=== PATIENT | male | born 1965 | race African-American/Black ===

== ENCOUNTER → 2017-10-17 | Outpatient (CLI) | payer BC ==
[~2017-10-17] MED LIST: AMOX500C3 PO; ASCO500C43; CHRO1CAP7; CIPR1TAB11 PO; GARL1CAP; GLIP-197 PO; GLIP10TA10 PO; METF-384 PO; MULTTAB58 PO; SULF800T23 PO; TRAM-10 PO; VITA400C15 PO; VITATAB19 PO
[2017-10-17 19:50] LABS: CREATININE 1.49 mg/dl (0.60-1.40)
== END | disposition home or self-care (01) ==
LOC: C.LAB 17:34
PROVIDERS: ATTEND Emergency Medicine
DX: Z01.812 Encounter for preprocedural laboratory examination (principal)

== ENCOUNTER → 2017-10-18 | Outpatient (CLI) | payer BC ==
[~2017-10-18] MED LIST changes: +GADAVIST IV PRN; +LCTX PO; +LSN5 PO; +LVQ750 PO; +MTR500 PO
--- NOTE | 2017-10-18 09:35 | DIAGNOSTIC IMAGING REPORT ---
L LOWER EXT NONJOINT COMBO CLINICAL HISTORY: L FOOT ULCER pain. Infection. TECHNIQUE: Multiaxial MRI acquisition COMPARISON STUDY: None FINDINGS: Evidence for extensive soft tissue cellulitis seen circumferentially about the foot. At the plantar lateral aspect of the foot is an area of increased edematous change with several small air bubbles within the soft tissues adjacent to a fistulous tract extending to the skin surface. This potentially indicates a developing phlegmon and/or air producing bacteria. The osseous structures show no evidence for osteomyelitis. Signal characteristics the osseous structures are uniform throughout. There are findings of mild degenerative changes of the articular services. All major ligamentous and tendinous structures are intact. Bacteria IMPRESSION: 1. Generalized soft tissue cellulitis seen circumferentially about the foot. 2. This predominates at the soft tissues immediately adjacent to the base of the fifth metatarsal where there is a possibility of an early developing air-containing phlegmon versus air producing inflammatory process. 3. No evidence for drainable abscess or collection. 4. No evidence for osteomyelitis. The above report was generated using voice recognition software. It may contain grammatical, syntax or spelling errors. Electronically signed by: Giuseppe Leon M.D. 10/18/2017 9:33 AM Dictated Date/Time: 10/18/2017 9:16 AM
== END | disposition home or self-care (01) ==
LOC: C.MRI 07:49
PROVIDERS: ATTEND Physician Assistant
DX: E11.621 Type 2 diabetes mellitus with foot ulcer (principal); L97.529 Non-pressure chronic ulcer of other part of left foot with unspecified severity; L03.116 Cellulitis of left lower limb

== ENCOUNTER 2017-10-20 10:31 | Inpatient (IN) | payer BC ==
[~2017-10-20] VITALS: Ht 190.5 cm; Wt 102.0 kg
[~2017-10-20 10:31] MED LIST changes: -GADAVIST IV PRN; -GLIP10TA10 PO; -LCTX PO; -LSN5 PO; -LVQ750 PO; -MTR500 PO; -MULTTAB58 PO
[2017-10-20 11:30] VITALS: BP 145/87; PULSE 106; TEMP 37.3; O2SAT 97; BMI 26.3
[2017-10-20] MEDS ORDERED: POLYETHYLENE (MIRALAX) 17 GM PACK PO PRN (11:45)
[2017-10-20] MEDS ORDERED: ACETAMINOPHEN 325 MG TAB PO PRN (11:45)
[2017-10-20] MEDS ORDERED: ONDANSETRON INJ 2 MG/ML 2 ML VIAL IV PRN (11:45)
[2017-10-20] MEDS ORDERED: MULTTAB58 PO (12:26)
[2017-10-20] MEDS ORDERED: DEXTROSE 50% 50 ML SYR IV PRN (12:30)
[2017-10-20] MEDS ORDERED: GLUCAGON FOR INJ 1 MG VIAL SQ PRN (12:30)
[2017-10-20] MEDS ORDERED: GLUCOSE 10 TABS/TUBE PO PRN (12:30)
[2017-10-20] MEDS ORDERED: GLUCOSE 40% GEL 15 GM TUBE PO PRN (12:30)
[2017-10-20] MEDS ORDERED: PATIENT'S HEIGHT AND/OR WEIGHT NEEDED SCH (12:30)
[2017-10-20 12:36] LABS: BASO % 0.1 %; BASO ABS # 0.01 K/uL (0-0.2); EOS ABS # 0.08 K/uL (0-0.5); HEMATOCRIT 32.4 % (42-52); HEMOGLOBIN 11.1 g/dL (14.0-18.0); IG# 0.01 K/uL (0.00-0.02); LYMPH % 14.3 %; MEAN CELL VOLUME 82.4 fL (80-100); MEAN CORPUSCULAR HEMOGLOBIN 28.2 pg (25-34); MEAN CORPUSCULAR HGB CONC 34.3 g/dl (32-36); MEAN PLATELET VOLUME 10.6 fL (7.4-10.4); MONO % 3.7 %; MONO ABS # 0.31 K/uL (0.11-0.59); NEUT % 80.8 %; NEUT ABS # 6.77 K/uL (1.4-6.5); PLATELET COUNT 357 K/uL (130-400); RED CELL DISTRIBUTION WIDTH CV 12.6 % (11.5-14.5); RED CELL DISTRIBUTION WIDTH SD 38.3 fL (36.4-46.3); WHITE BLOOD COUNT 8.38 K/uL (4.8-10.8)
[2017-10-20] MEDS ORDERED: VANCOMYCIN CONSULT ACTIVE PRN (12:45)
[2017-10-20] MEDS ORDERED: CEFEPIME CONSULT ACTIVE PRN (12:45)
[2017-10-20] MEDS ORDERED: VANCOMYCIN IV 2,500 MG in SODIUM CHLORIDE 0.9% 500ML 500 ML IV SCH (13:00)
[2017-10-20] MEDS ORDERED: CEFEPIME IV 2,000 MG in SYRINGE 7.5 ML IV SCH (13:00)
[2017-10-20] MEDS: TRAMADOL HCL 50 MG TAB PO PRN (13:04)
[2017-10-20 13:05] LABS: CALCIUM 9.2 mg/dl (8.5-10.1); CREATININE 1.34 mg/dl (0.60-1.40); POTASSIUM 5.3 mmol/L (3.5-5.1)
[2017-10-20] MEDS ORDERED: PIPERACILL/TAZOBAC CONSULT ACTIVE PRN (13:30)
[2017-10-20] MEDS ORDERED: SODIUM CHLORIDE 0.9% 1000ML 1,000 ML IV SCH ×3 (13:30→21:15)
[2017-10-20] MEDS ORDERED: PIPERACILL/TAZOBAC IV 4.5 GM in DEXTROSE 5% 100ML 100 ML IV ONE (14:00)
[2017-10-20] MEDS ORDERED: INSULIN HUMAN REGULAR PER UNIT 10 UNITS in SYRINGE 9.9 ML IV ONE (14:15)
[2017-10-20 14:22] LABS: PHOSPHORUS 3.8 mg/dl (2.5-4.9)
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
[2017-10-20 14:49] VITALS: BMI 28.1
--- NOTE | 2017-10-20 15:30 | Medical Consult ---
Consultation Date of Consultation: Oct 20, 2017. Attending Physician: Tia Willis M.D. Reason for Consultation: Left foot wound History of Present Illness 52-year-old male with longstanding diabetes mellitus, who has suffered from and open wound of his left foot for approximately 1 month. He initially saw his primary care doctor who gave him a dose of IV ceftriaxone and treated him with Bactrim, and then refer the patient to the wound Care Center. Patient had culture obtained which grew Streptococcus, Bacteroides, and Pseudomonas, and patient was treated with oral ciprofloxacin and amoxicillin. However he returned to the wound Care Center and was found to have worsening wound, area was debrided and packed, and patient was referred to hospital for admission. He has had MRI scan, read by me, which shows no evidence of osteomyelitis but presence of soft tissue infection. Patient denies any fever, chills, or other systemic complaints. Currently states pain 3/10 intensity. Past Medical/Surgical History Medical Problems: (1) Bronchitis (2) Cellulitis of left foot (3) DM (diabetes mellitus) (4) HTN (hypertension) Surgical Problems: (1) History of right cataract surgery (2) Hx of fracture of femur (3) Hx of fracture of skull Family History Diabetes mellitus FH: CAD (coronary artery disease) Hypertension Social History Smoking Status: Former Smoker Smokeless Tobacco Use: Yes Alcohol Use: none Drug Use: none Marital Status: Housing Status: lives with family Occupation Status: employed Allergies Coded Allergies: No Known Allergies (Unverified , NONE, 03/03/09) Current Inpatient Medications Current Inpatient Medications Medications (Trade) Dose Ordered Sig/Adrian Route Start Time Stop Time Status Last Admin Dose Admin Acetaminophen (Tylenol Tab) 650 mg Q4H PRN PO 10/20/17 11:45 11/19/17 11:44 10/20/17 14:30 650 MG Polyethylene (Miralax Powder Packet) 17 gm DAILY PRN PO 10/20/17 11:45 11/19/17 11:44 Ondansetron HCl (Zofran Inj) 4 mg Q6H PRN IV 10/20/17 11:45 11/19/17 11:44 Insulin Glargine (Lantus Solostar Pen) 15 units Q12 SC 10/20/17 21:00 11/19/17 20:59 Insulin Aspart (novoLOG ASPART) SLIDING SCALE If C... ACHS SC 10/20/17 16:30 11/19/17 16:29 Glucose (Glucose 40% Gel) 15-30 GRAMS 15 GRAMS... UD PRN PO 10/20/17 12:30 11/19/17 12:29 Glucose (Glucose Chew Tab) 4-8 Tablets 4 Tabl... UD PRN PO 10/20/17 12:30 11/19/17 12:29 Dextrose (Dextrose 50% 50ML Syringe) 25-50ML OF 50% DW IV FOR... UD PRN IV 10/20/17 12:30 11/19/17 12:29 Glucagon (Glucagon Inj) 1 mg UD PRN SQ 10/20/17 12:30 11/19/17 12:29 Multivitamins (Multivitamin Tab) 1 tab DAILY PO 10/21/17 09:00 11/20/17 08:59 Tramadol HCl (Ultram Tab) 50 mg Q6 PRN PO 10/20/17 12:30 11/19/17 12:29 10/20/17 13:04 50 MG Sodium Chloride 1,000 ml @ 100 mls/hr Q10H IV 10/20/17 13:30 10/20/17 23:29 10/20/17 14:20 100 MLS/HR Piperacillin Sod/ Tazobactam Sod 4.5 gm/Dextrose 120 ml @ 30 mls/hr Q8H IV 10/20/17 20:00 10/30/17 13:59 Miscellaneous Information (Consult) 1 ea UD PRN N/A 10/20/17 13:30 11/19/17 13:29 Insulin Aspart (novoLOG ASPART) SLIDING SCALE If C... 0000,0400 [place] 10/21/17 00:00 11/20/17 00:00 Review of Systems All systems were reviewed and are negative except as per HPI Physical Exam Date Time Temp Pulse Resp B/P (MAP) Pulse Ox O2 Delivery O2 Flow Rate FiO2 10/20/17 11:30 37.3 106 18 145/87 (106) 97 Room Air 10/20/17 11:30 37.3 106 18 145/87 97 Room Air General Appearance: WD/WN, no apparent distress Head: normocephalic, atraumatic Eyes: normal inspection, EOMI, sclerae normal ENT: normal ENT inspection, hearing grossly normal, pharynx normal Neck: supple, no adenopathy, thyroid normal, trachea midline Respiratory/Chest: chest non-tender, lungs clear, normal breath sounds, no respiratory distress Cardiovascular: regular rate, rhythm, no gallop, no murmur Abdomen/GI: normal bowel sounds, non tender, soft, no organomegaly Back: normal inspection, no CVA tenderness Extremities/Musculoskelatal: no calf tenderness, normal capillary refill, non- tender Neurologic/Psych: alert, normal mood/affect, oriented x 3 Skin: normal color, no rash, + pertinent finding (left lateral foot wound with erythema, induration, foul odor) Laboratory Results RUN DATE: 10/14/17 [facility] LAB PAGE 1 RUN TIME: 1502 Specimen Inquiry PATIENT: MARNI GODINEZ LOC: C.WOUND U # : [id number] AGE/SX: 52/M ROOM: REG : 10/10/[address]: Giuseppe Chandler, : 1965 BED: DIS : STATUS: REG [facility] TLOC: SPEC #: [id number] REAL: 10/10/17 STATUS: IFRAH REQ #: [id number] RECD: 10/10/[address]: Karey Calvert, WILLIAM Gregorio SOURCE: DRAIN-DEEP ENTR: 10/10/17-[address]: Bridget Lang D.O. SPDESC: FOOT LEFT Giuseppe Chandler DO ORDERED: ELIZABETH MONDRAGON CUL/SMR Procedure Result Verified Site GRAM STAIN Final 10/11/17-0654 RESULT MODERATE WBCs SEEN MODERATE GRAM POSITIVE COCCI DEEP WOUND CULTURE Final 10/14/17-1502 Organism 1 PSEUDOMONAS AERUGINOSA QUANITY FEW SENS SENSITIVITY TO FOLLOW +MIXWOUND PLUS LOW COUNTS OF PROBABLE SKIN SYLVIA Organism 2 GROUP B BETA STREP QUANITY MODERATE SENS SENSITIVITY TO FOLLOW Organism 3 PSEUDOMONAS AERUGINOSA#2 QUANITY FEW SENS SENSITIVITY TO FOLLOW Organism 4 BACTEROIDES UNIFORMIS QUANITY MODERATE SENS NO SENSITIVITY TO FOLLOW Organism 5 FINEGOLDIA MAGNA (PEP. WHITLEY) QUANITY MANY SENS NO SENSITIVITY TO FOLLOW CONTINUED ON NEXT PAGE RUN DATE: 10/14/17 [facility] LAB PAGE 2 RUN TIME: 1502 Specimen Inquiry SPEC: [id number] PATIENT: HERBERTMARNI GARDNER [id number] ( Continued) Procedure Result Verified Site DEEP WOUND CULTURE Final (continued) 10/14/17-1502 PSEUD AERG GBBS PSEUD AERG#2 M.I.C. RX M.I.C. RX M.I.C. RX --------- ------ --------- ------ --------- ------ AMPICILLIN 0.12 S CEFOTAXIME <=0.25 S CEFTAZIDIME 4 S 4 S CEFTRIAXONE <=0.25 S CEFEPIME <=4 S <=0.25 S <=4 S CHLORAMPHENICOL 2 S IMIPENEM 2 S <=1 S AZTREONAM <=4 S 8 S VANCOMYCIN 0.5 S PENICILLIN 0.06 S GENTAMICIN <=4 S 8 I TOBRAMYCIN <=4 S <=4 S ERYTHROMYCIN <=0.06 S AMIKACIN <=16 S <=16 S CIPROFLOXACIN <=1 S <=1 S LEVOFLOXACIN <=2 S <=2 S CLINDAMYCIN <=0.06 S PIP/TAZO <=16 S <=16 S AZITHROMYCIN <=0.25 S 1. PSEUDOMONAS AERUGINOSA Target Route Dose RX AB Cost M.I.C. IQ ------ ----- ------ -- ------ -------- - ------ CEFTAZIDIME S 4 CEFEPIME S <=4 IMIPENEM S 2 AZTREONAM S <=4 GENTAMICIN S <=4 TOBRAMYCIN S <=4 AMIKACIN S <=16 CIPROFLOXACIN S <=1 LEVOFLOXACIN S <=2 PIP/TAZO S <=16 2. GROUP B BETA STREP Target Route Dose RX AB Cost M.I.C. IQ ------ ----- ------ -- ------ -------- - ------ AMPICILLIN S 0.12 CEFOTAXIME S <=0.25 CEFTRIAXONE S <=0.25 CEFEPIME S <=0.25 CHLORAMPHENICOL S 2 VANCOMYCIN S 0.5 PENICILLIN S 0.06 ERYTHROMYCIN S <=0.06 CLINDAMYCIN S <=0.06 CONTINUED ON NEXT PAGE RUN DATE: 10/14/17 [facility] LAB PAGE 3 RUN TIME: 1502 Specimen Inquiry SPEC: [id number] PATIENT: HERBERTMARNI GARDNER [id number] ( Continued) Procedure Result Verified Site DEEP WOUND CULTURE Final (continued) 10/14/17-1502 2. GROUP B BETA STREP (continued) Target Route Dose RX AB Cost M.I.C. IQ ------ ----- ------ -- ------ -------- - ------ AZITHROMYCIN S <=0.25 3. PSEUDOMONAS AERUGINOSA#2 Target Route Dose RX AB Cost M.I.C. IQ ------ ----- ------ -- ------ -------- - ------ CEFTAZIDIME S 4 CEFEPIME S <=4 IMIPENEM S <=1 AZTREONAM S 8 GENTAMICIN I 8 TOBRAMYCIN S <=4 AMIKACIN S <=16 CIPROFLOXACIN S <=1 LEVOFLOXACIN S <=2 PIP/TAZO S <=16 S = SENSITIVE I = INTERMEDIATE R = RESISTANT END OF REPORT Last 24 Hours Test 10/20/17 12:18 10/20/17 13:29 10/20/17 13:40 10/20/17 13:42 White Blood Count 8.38 K/uL Red Blood Count 3.93 M/uL Hemoglobin 11.1 g/dL Hematocrit 32.4 % Mean Corpuscular Volume 82.4 fL Mean Corpuscular Hemoglobin 28.2 pg Mean Corpuscular Hemoglobin Concent 34.3 g/dl Platelet Count 357 K/uL Mean Platelet Volume 10.6 fL Neutrophils (%) (Auto) 80.8 % Lymphocytes (%) (Auto) 14.3 % Monocytes (%) (Auto) 3.7 % Eosinophils (%) (Auto) 1.0 % Basophils (%) (Auto) 0.1 % Neutrophils # (Auto) 6.77 K/uL Lymphocytes # (Auto) 1.20 K/uL Monocytes # (Auto) 0.31 K/uL Eosinophils # (Auto) 0.08 K/uL Basophils # (Auto) 0.01 K/uL RDW Standard Deviation 38.3 fL RDW Coefficient of Variation 12.6 % Immature Granulocyte % (Auto) 0.1 % Immature Granulocyte # (Auto) 0.01 K/uL Sodium Level 133 mmol/L Potassium Level 5.3 mmol/L Chloride Level 98 mmol/L Carbon Dioxide Level 28 mmol/L Anion Gap 6.0 mmol/L Blood Urea Nitrogen 24 mg/dl Creatinine 1.34 mg/dl Est Creatinine Clear Calc Drug Dose 83.5 ml/min Estimated GFR () 70.1 Estimated GFR (Non- 60.5 BUN/Creatinine Ratio 17.8 Random Glucose 442 mg/dl Calcium Level 9.2 mg/dl Phosphorus Level 3.8 mg/dl Magnesium Level 2.0 mg/dl Beta-Hydroxybutyric Acid 14.77 mg/dL Bedside Glucose 474 mg/dl 509 mg/dl Test 10/20/17 15:04 Bedside Glucose 251 mg/dl Patient Name: MARNI GODINEZ Unit Number: [id number] Dictated: 10/18/17915 Transcribed: 10/18/17915 MS Printed Date/Time: [~ rep prt dt]/[~ rep prt tm] [~ rep ct labl] - [~ rep ct ivnm] [facility] [place] [address] Dictated: 10/18/17915 Transcribed: 10/18/17915 MS Printed Date/Time: [~ rep prt dt]/[~ rep prt tm] [~ rep ct labl] - [~ rep ct ivnm] L LOWER EXT NONJOINT COMBO CLINICAL HISTORY: L FOOT ULCER pain. Infection. TECHNIQUE: Multiaxial MRI acquisition COMPARISON STUDY: None FINDINGS: Evidence for extensive soft tissue cellulitis seen circumferentially about the foot. At the plantar lateral aspect of the foot is an area of increased edematous change with several small air bubbles within the soft tissues adjacent to a fistulous tract extending to the skin surface. This potentially indicates a developing phlegmon and/or air producing bacteria. The osseous structures show no evidence for osteomyelitis. Signal characteristics the osseous structures are uniform throughout. There are findings of mild degenerative changes of the articular services. All major ligamentous and tendinous structures are intact. Bacteria IMPRESSION: 1. Generalized soft tissue cellulitis seen circumferentially about the foot. 2. This predominates at the soft tissues immediately adjacent to the base of the fifth metatarsal where there is a possibility of an early developing air-containing phlegmon versus air producing inflammatory process. 3. No evidence for drainable abscess or collection. 4. No evidence for osteomyelitis. The above report was generated using voice recognition software. It may contain grammatical, syntax or spelling errors. Electronically signed by: Giuseppe Leon M.D. 10/18/2017 9:33 AM Dictated Date/Time: 10/18/2017 9:16 AM The status of this report is Signed. Draft = Not yet reviewed or approved by Radiologist. Signed = Reviewed and approved by Radiologist. <AttendingPhy>Karey Calvert .OSVALDO</AttendingPhy> <FamilyPhy>Bridget Lang D.O.</FamilyPhy> <PrimaryPhy>Bridget Lang D.O.</PrimaryPhy> <UnitNumber> [id number]</UnitNumber> <VisitNumber>[id number]</VisitNumber> <PatientName> MARNI GODINEZ</PatientName> <DateOfBirth>1965</DateOfBirth> <Location> C.MRI</Location> <ServiceDate>10/18/17</ServiceDate> <MNE>ESINDI</MNE> < OrderingPhy>Karey Calvert PA-C</OrderingPhy> <OrderingPhyMNE>f rep ord dr sanches</ OrderingPhyMNE> <DictatingPhyMNE>f rep dict dr sanches</DictatingPhyMNE> <CCListMNE> f rep ct maciee</CCListMNE> <AdmittingPhyMNE>f pt admit dr sanches</AdmittingPhyMNE> < AttendingPhyMNE>f pt attend dr sanches</AttendingPhyMNE> <ConsultingPhyMNE>f pt consult dr sanches</ConsultingPhyMNE> <FamilyPhyMNE>f pt fam dr sanches</FamilyPhyMNE> <OtherPhyMNE>f pt other dr sanches</OtherPhyMNE> < PrimaryPhyMNE>f pt prim care dr sanches</PrimaryPhyMNE> <ReferringPhyMNE>f pt referring dr sanches</ReferringPhyMNE> Assessment & Plan 52 yo diabetic with infected left foot wound with polymicrobic infection with Pseudomonas, Group B Strep, Bacteroides, and Finegoldia. I have changed patient to Zosyn to provide anaerobic coverage. Length of IV therapy will be determined by clinical response. Will follow.
[2017-10-20 16:00] VITALS: BP 127/79; PULSE 95; TEMP 37.1; O2SAT 95
[2017-10-20] MEDS: INSULIN ASPART 100 UNITS/ML 3 ML PEN SC SCH ×2 (17:27→21:11)
[2017-10-20] MEDS: PIPERACILL/TAZOBAC IV 4.5 GM in DEXTROSE 5% 100ML 100 ML IV SCH (19:45)
[2017-10-20 20:44] LABS: CALCIUM 8.9 mg/dl (8.5-10.1); CREATININE 1.77 mg/dl (0.60-1.40); POTASSIUM 4.2 mmol/L (3.5-5.1)
[2017-10-20] MEDS: INSULIN GLARGINE SOLOSTAR 100 UNITS/ML 3 ML PEN SC SCH (21:11)
[2017-10-21] MEDS: TRAMADOL HCL 50 MG TAB PO PRN
[2017-10-21 00:08] VITALS: BP 134/76; PULSE 87; TEMP 37.1; O2SAT 96
[2017-10-21] MEDS: INSULIN ASPART 100 UNITS/ML 3 ML PEN SC SCH ×6 (00:11→22:00)
[2017-10-21] MEDS: PIPERACILL/TAZOBAC IV 4.5 GM in DEXTROSE 5% 100ML 100 ML IV SCH ×3 (03:53→20:26)
[2017-10-21 07:42] LABS: HEMATOCRIT 30.9 % (42-52); HEMOGLOBIN 10.3 g/dL (14.0-18.0); MEAN CELL VOLUME 82.4 fL (80-100); MEAN CORPUSCULAR HEMOGLOBIN 27.5 pg (25-34); MEAN CORPUSCULAR HGB CONC 33.3 g/dl (32-36); MEAN PLATELET VOLUME 10.1 fL (7.4-10.4); PLATELET COUNT 329 K/uL (130-400); RED CELL DISTRIBUTION WIDTH CV 12.8 % (11.5-14.5); RED CELL DISTRIBUTION WIDTH SD 38.8 fL (36.4-46.3); WHITE BLOOD COUNT 8.49 K/uL (4.8-10.8)
[2017-10-21] MEDS: MULTIVITAMIN TAB PO SCH (08:04)
[2017-10-21] MEDS: INSULIN GLARGINE SOLOSTAR 100 UNITS/ML 3 ML PEN SC SCH ×2 (08:07→21:58)
[2017-10-21 08:13] LABS: CALCIUM 8.8 mg/dl (8.5-10.1); CREATININE 1.38 mg/dl (0.60-1.40); POTASSIUM 4.3 mmol/L (3.5-5.1)
[2017-10-21 08:23] VITALS: BP 146/83; PULSE 85; TEMP 37; O2SAT 97
--- NOTE | 2017-10-21 12:03 | Progress Note ---
Internal Med Progress Note Date of Service: Oct 21, 2017. Provider Documentation: SUBJECTIVE: Seen and examined at bedside States left foot pain is much improved Denies chest pain, SOB, dizziness, abd pain No other complaints OBJECTIVE: Vital Signs-as noted below Physical Exam: Vitals signs as noted above General Appearance:Moderately built and nourished, no apparent distress Head: normocephalic, Atraumatic Eyes: normal inspection, EOMI, PERRL Neck: supple, Trachea midline Respiratory/Chest: Normal breath sounds, CTA Cardiovascular: S1, S2, No murmur Abdomen/GI:Soft, Non tender, Bowel sounds present Extremities/Musculoskelatal:normal inspection, no edema, Left foot in dressing Neurologic/Psych:AAOX3, grossly no focal neurological deficits Skin: normal color, warm Lab data as noted below. ASSESSMENT & PLAN: Left Foot infected Wound/Cellulitis: Wound culture 10/10/17 + Pseudomonas, Group B beta strep. S/P Debridement and packing by wound care provider blood cultures:pending Continue Zosyn ID following Continue wound care pain control DM II Hyperglycemia H A1c 8.3 on 10/06/17 Continue ISS, Lantus monitor BGs HTN Hx HTN, no current medications BP labile monitor Acute Kidney Injury: IV fluids monitor renal function Avoid nephrotoxic agents as able DVT Px: Heparin SQ Code Status: Full code Disposition: Expect to discharge home when stable Follows with Dr Kirby for routine care Vital Signs: Date Time Temp Pulse Resp B/P (MAP) Pulse Ox O2 Delivery O2 Flow Rate FiO2 10/21/17 08:23 37.0 85 20 146/83 (104) 97 10/21/17 08:00 Room Air 10/21/17 00:10 Room Air 10/21/17 00:08 37.1 87 20 134/76 (95) 96 Room Air 10/20/17 16:00 37.1 95 20 127/79 (95) 95 Room Air 10/20/17 16:00 95 Room Air Lab Results: Results Past 24 Hours Test 10/20/17 12:18 10/20/17 13:40 10/20/17 13:42 10/20/17 15:04 Range/Units White Blood Count 8.38 4.8-10.8 K/uL Red Blood Count 3.93 4.7-6.1 M/uL Hemoglobin 11.1 14.0-18.0 g/dL Hematocrit 32.4 42-52 % Mean Corpuscular Volume 82.4 80-100 fL Mean Corpuscular Hemoglobin 28.2 25-34 pg Mean Corpuscular Hemoglobin Concent 34.3 32-36 g/dl Platelet Count 357 130-400 K/uL Mean Platelet Volume 10.6 7.4-10.4 fL Neutrophils (%) (Auto) 80.8 % Lymphocytes (%) (Auto) 14.3 % Monocytes (%) (Auto) 3.7 % Eosinophils (%) (Auto) 1.0 % Basophils (%) (Auto) 0.1 % Neutrophils # (Auto) 6.77 1.4-6.5 K/uL Lymphocytes # (Auto) 1.20 1.2-3.4 K/uL Monocytes # (Auto) 0.31 0.11-0.59 K/uL Eosinophils # (Auto) 0.08 0-0.5 K/uL Basophils # (Auto) 0.01 0-0.2 K/uL RDW Standard Deviation 38.3 36.4-46.3 fL RDW Coefficient of Variation 12.6 11.5-14.5 % Immature Granulocyte % (Auto) 0.1 % Immature Granulocyte # (Auto) 0.01 0.00-0.02 K/uL Sodium Level 133 136-145 mmol/L Potassium Level 5.3 3.5-5.1 mmol/L Chloride Level 98 98-107 mmol/L Carbon Dioxide Level 28 21-32 mmol/L Anion Gap 6.0 3-11 mmol/L Blood Urea Nitrogen 24 7-18 mg/dl Creatinine 1.34 0.60-1.40 mg/dl Est Creatinine Clear Calc Drug Dose 83.5 ml/min Estimated GFR () 70.1 Estimated GFR (Non- 60.5 BUN/Creatinine Ratio 17.8 10-20 Random Glucose 442 70-99 mg/dl Calcium Level 9.2 8.5-10.1 mg/dl Phosphorus Level 3.8 2.5-4.9 mg/dl Magnesium Level 2.0 1.8-2.4 mg/dl Beta-Hydroxybutyric Acid 14.77 0.2-2.81 mg/dL Bedside Glucose 474 509 251 70-99 mg/dl Test 10/20/17 16:41 10/20/17 20:05 10/20/17 20:33 10/21/17 00:04 Range/Units Bedside Glucose 156 262 218 70-99 mg/dl Sodium Level 137 136-145 mmol/L Potassium Level 4.2 3.5-5.1 mmol/L Chloride Level 102 98-107 mmol/L Carbon Dioxide Level 30 21-32 mmol/L Anion Gap 5.0 3-11 mmol/L Blood Urea Nitrogen 27 7-18 mg/dl Creatinine 1.77 0.60-1.40 mg/dl Est Creatinine Clear Calc Drug Dose 63.2 ml/min Estimated GFR () 50.1 Estimated GFR (Non- 43.2 BUN/Creatinine Ratio 15.3 10-20 Random Glucose 236 70-99 mg/dl Calcium Level 8.9 8.5-10.1 mg/dl Test 10/21/17 00:35 10/21/17 03:54 10/21/17 07:16 10/21/17 08:00 Range/Units Urine Color YELLOW Urine Appearance CLEAR CLEAR Urine pH 5.0 4.5-7.5 Urine Specific [place] 1.020 1.000-1.030 Urine Protein NEG NEG Urine Glucose (UA) 2+ NEG Urine Ketones TRACE NEG Urine Occult Blood 1+ NEG Urine Nitrite NEG NEG Urine Bilirubin NEG NEG Urine Urobilinogen NEG NEG Urine Leukocyte Esterase NEG NEG Urine WBC (Auto) 1-5 0-5 /hpf Urine RBC (Auto) 0-4 0-4 /hpf Urine Hyaline Casts (Auto) 1-5 0-5 /lpf Urine Epithelial Cells (Auto) 5-10 0-5 /lpf Urine Bacteria (Auto) NEG NEG Bedside Glucose 117 135 70-99 mg/dl White Blood Count 8.49 4.8-10.8 K/uL Red Blood Count 3.75 4.7-6.1 M/uL Hemoglobin 10.3 14.0-18.0 g/dL Hematocrit 30.9 42-52 % Mean Corpuscular Volume 82.4 80-100 fL Mean Corpuscular Hemoglobin 27.5 25-34 pg Mean Corpuscular Hemoglobin Concent 33.3 32-36 g/dl RDW Standard Deviation 38.8 36.4-46.3 fL RDW Coefficient of Variation 12.8 11.5-14.5 % Platelet Count 329 130-400 K/uL Mean Platelet Volume 10.1 7.4-10.4 fL Sodium Level 139 136-145 mmol/L Potassium Level 4.3 3.5-5.1 mmol/L Chloride Level 104 98-107 mmol/L Carbon Dioxide Level 29 21-32 mmol/L Anion Gap 6.0 3-11 mmol/L Blood Urea Nitrogen 22 7-18 mg/dl Creatinine 1.38 0.60-1.40 mg/dl Est Creatinine Clear Calc Drug Dose 81.0 ml/min Estimated GFR () 67.6 Estimated GFR (Non- 58.4 BUN/Creatinine Ratio 15.8 10-20 Random Glucose 137 70-99 mg/dl Calcium Level 8.8 8.5-10.1 mg/dl Beta-Hydroxybutyric Acid 5.25 0.2-2.81 mg/dL Test 10/21/17 11:22 Range/Units Bedside Glucose 198 70-99 mg/dl Microbiology Results 10/20/17 Blood Culture, Received Pending 10/20/17 Blood Culture, Received Pending
[2017-10-21] MEDS ORDERED: SODIUM CHLORIDE 0.9% 1000ML 1,000 ML IV ONE (12:30)
[2017-10-21 13:06] LABS: INR 1.1 (0.9-1.1)
[2017-10-21 16:24] VITALS: BP 128/84; PULSE 87; TEMP 36.9; O2SAT 96
[2017-10-21] MEDS: HEPARIN SOD 5000 UNIT/0.5 ML CARP SQ SCH (21:58)
[2017-10-22] MEDS: INSULIN ASPART 100 UNITS/ML 3 ML PEN SC SCH ×6 (00:04→20:29)
[2017-10-22 00:26] VITALS: BP 143/84; PULSE 90; TEMP 37.1; O2SAT 95
[2017-10-22] MEDS: PIPERACILL/TAZOBAC IV 4.5 GM in DEXTROSE 5% 100ML 100 ML IV SCH ×3 (03:28→20:22)
[2017-10-22 07:18] LABS: HEMATOCRIT 31.3 % (42-52); HEMOGLOBIN 10.5 g/dL (14.0-18.0)
[2017-10-22 07:36] VITALS: BP 162/88; PULSE 83; TEMP 37; O2SAT 95
[2017-10-22 07:41] LABS: CALCIUM 9.2 mg/dl (8.5-10.1); CREATININE 1.06 mg/dl (0.60-1.40); POTASSIUM 4.1 mmol/L (3.5-5.1)
[2017-10-22] MEDS: MULTIVITAMIN TAB PO SCH (07:56)
[2017-10-22] MEDS: INSULIN GLARGINE SOLOSTAR 100 UNITS/ML 3 ML PEN SC SCH ×2 (08:01→20:34)
[2017-10-22] MEDS: HEPARIN SOD 5000 UNIT/0.5 ML CARP SQ SCH ×2 (08:01→20:35)
[2017-10-22] MEDS ORDERED: LISINOPRIL 5 MG TAB PO ONE (13:00)
--- NOTE | 2017-10-22 13:04 | Progress Note ---
Internal Med Progress Note Date of Service: Oct 22, 2017. Provider Documentation: SUBJECTIVE: Seen and examined at bedside Feels well today left foot pain is minimal Denies chest pain, SOB, dizziness, abd pain No other complaints OBJECTIVE: Vital Signs-as noted below Physical Exam: Vitals signs as noted above General Appearance:Moderately built and nourished, no apparent distress Head: normocephalic, Atraumatic Eyes: normal inspection, EOMI, PERRL Neck: supple, Trachea midline Respiratory/Chest: Normal breath sounds, CTA Cardiovascular: S1, S2, No murmur Abdomen/GI:Soft, Non tender, Bowel sounds present Extremities/Musculoskelatal:normal inspection, no edema, Left foot in dressing Neurologic/Psych:AAOX3, grossly no focal neurological deficits Skin: normal color, warm Lab data as noted below. ASSESSMENT & PLAN: Left Foot infected Wound/Cellulitis: Wound culture 10/10/17 + Pseudomonas, Group B beta strep. S/P Debridement and packing by wound care provider blood cultures:No growth to date Continue Zosyn ID following Continue wound care pain control DM II Hyperglycemia H A1c 8.3 on 10/06/17 Continue ISS, Lantus monitor BGs HTN Hx HTN, no current medications BP labile Will start on Lisinopril monitor Acute Kidney Injury: Resolved IV fluids discontinued monitor renal function Avoid nephrotoxic agents as able DVT Px: Heparin SQ Code Status: Full code Disposition: Expect to discharge home when stable Follows with Dr Kirby for routine care Vital Signs: Date Time Temp Pulse Resp B/P (MAP) Pulse Ox O2 Delivery O2 Flow Rate FiO2 10/22/17 08:00 Room Air 10/22/17 07:36 37.0 83 20 162/88 (112) 95 10/22/17 00:26 37.1 90 20 143/84 (103) 95 Room Air 10/22/17 00:00 Room Air 10/21/17 17:45 Room Air 10/21/17 16:24 36.9 87 20 128/84 (99) 96 Room Air Lab Results: Results Past 24 Hours Test 10/21/17 16:56 10/21/17 20:09 10/21/17 23:58 10/22/17 03:21 Range/Units Bedside Glucose 159 253 348 209 70-99 mg/dl Test 10/22/17 06:53 10/22/17 07:08 10/22/17 11:34 Range/Units Hemoglobin 10.5 14.0-18.0 g/dL Hematocrit 31.3 42-52 % Sodium Level 136 136-145 mmol/L Potassium Level 4.1 3.5-5.1 mmol/L Chloride Level 104 98-107 mmol/L Carbon Dioxide Level 30 21-32 mmol/L Anion Gap 2.0 3-11 mmol/L Blood Urea Nitrogen 15 7-18 mg/dl Creatinine 1.06 0.60-1.40 mg/dl Est Creatinine Clear Calc Drug Dose 105.5 ml/min Estimated GFR () 93.1 Estimated GFR (Non- 80.3 BUN/Creatinine Ratio 14.3 10-20 Random Glucose 191 70-99 mg/dl Calcium Level 9.2 8.5-10.1 mg/dl Magnesium Level 1.9 1.8-2.4 mg/dl Bedside Glucose 198 215 70-99 mg/dl
[2017-10-22 14:55] VITALS: BP 141/83; PULSE 84; TEMP 37.2; O2SAT 97
[2017-10-22 16:10] VITALS: O2SAT 97
[2017-10-22 23:47] VITALS: BP 127/72; PULSE 82; TEMP 37.1; O2SAT 96
[2017-10-23] MEDS: INSULIN ASPART 100 UNITS/ML 3 ML PEN SC SCH ×6 (00:22→21:22)
[2017-10-23] MEDS: PIPERACILL/TAZOBAC IV 4.5 GM in DEXTROSE 5% 100ML 100 ML IV SCH ×3 (03:48→21:38)
[2017-10-23] MEDS: MULTIVITAMIN TAB PO SCH (07:54)
[2017-10-23] MEDS: LISINOPRIL 5 MG TAB PO SCH (07:55)
[2017-10-23] MEDS: HEPARIN SOD 5000 UNIT/0.5 ML CARP SQ SCH ×2 (08:01→21:25)
[2017-10-23] MEDS: INSULIN GLARGINE SOLOSTAR 100 UNITS/ML 3 ML PEN SC SCH (08:01)
[2017-10-23 08:06] VITALS: BP 136/84; PULSE 76; TEMP 36.7; O2SAT 97
[2017-10-23 08:33] LABS: CALCIUM 8.8 mg/dl (8.5-10.1); CREATININE 1.09 mg/dl (0.60-1.40); POTASSIUM 3.9 mmol/L (3.5-5.1)
--- NOTE | 2017-10-23 12:57 | Wound Progress Note: Inpatient ---
Wound Progress Note Date of Service Oct 23, 2017. Subjective Pt evaluation today including: conversation w/ patient, physical exam, chart review Patient seen in follow-up today after admission last week for increasing cellulitis and abscess formation to the left foot. Patient states he is feeling much improved today denies any fever chills or night sweats. Denies any significant pain in the foot area. Patient denies any other new systemic complaints at this time. Objective Vital Signs Date Time Temp Pulse Resp B/P (MAP) Pulse Ox O2 Delivery O2 Flow Rate FiO2 10/23/17 08:06 36.7 76 16 136/84 (101) 97 Room Air 10/23/17 08:00 Room Air 10/23/17 00:00 Room Air 10/22/17 23:47 37.1 82 20 127/72 (90) 96 Room Air 10/22/17 20:15 Room Air 10/22/17 16:10 97 Room Air 10/22/17 14:55 37.2 84 18 141/83 (102) 97 Room Air Physical Exam Notes: Patient currently lying in bed in no acute distress. Patient's vital signs were reviewed and found to be unremarkable patient is afebrile. The site today on the left foot lateral aspect measures 1.8 x 1.8 x 3 cm and on the plantar surface 0.7 x 0.7 x 3 cm. There is central slough as well as surrounding exfoliation of the epidermis present. No active drainage or odor noted. Minimal periwound erythema is present reduced from last week. No pain to palpation or fluctuance noted at the site. Laboratory Results Last 24 Hours Test 10/22/17 16:44 10/22/17 20:29 10/23/17 00:11 10/23/17 03:50 Bedside Glucose 148 mg/dl 103 mg/dl 246 mg/dl 280 mg/dl Test 10/23/17 07:03 10/23/17 07:27 10/23/17 11:44 Sodium Level 139 mmol/L Potassium Level 3.9 mmol/L Chloride Level 104 mmol/L Carbon Dioxide Level 30 mmol/L Anion Gap 5.0 mmol/L Blood Urea Nitrogen 13 mg/dl Creatinine 1.09 mg/dl Est Creatinine Clear Calc Drug Dose 102.6 ml/min Estimated GFR () 90.0 Estimated GFR (Non- 77.6 BUN/Creatinine Ratio 11.7 Random Glucose 207 mg/dl Calcium Level 8.8 mg/dl Magnesium Level 1.7 mg/dl Bedside Glucose 213 mg/dl 177 mg/dl Assessment and Plan Assessment: Resolving cellulitis and abscess formation left foot Plan: At this time the sites did require debridement. With patient's permission and after the application topical Xylocaine 4% the sites were debrided with scissors and forceps of central slough some subcutaneous tissue and surrounding eschar. No significant bleeding occurred. The site will be managed today with fair flow irrigating wound VAC. Black perforated foam will be at the base. Irrigation will be set for 10 minutes on 2 hours off of normal saline. Instillation volume determined by threshold maintenance. Patient will continue to be monitored during his hospitalization followed up the patient clinic upon discharge. It is anticipated that a conventional outpatient wound VAC will be employed at the time of discharge. This represented an excisional debridement of less than 20 cm.
[2017-10-23 14:16] VITALS: BMI 28.1
--- NOTE | 2017-10-23 14:20 | Progress Note ---
Internal Med Progress Note Date of Service: Oct 23, 2017. Provider Documentation: SUBJECTIVE: Seen and examined at bedside Feels well today left foot pain is minimal Denies chest pain, SOB, dizziness, abd pain No other complaints OBJECTIVE: Vital Signs-as noted below Physical Exam: Vitals signs as noted above General Appearance:Moderately built and nourished, no apparent distress Head: normocephalic, Atraumatic Eyes: normal inspection, EOMI, PERRL Neck: supple, Trachea midline Respiratory/Chest: Normal breath sounds, CTA Cardiovascular: S1, S2, No murmur Abdomen/GI:Soft, Non tender, Bowel sounds present Extremities/Musculoskelatal:normal inspection, no edema, Left foot in dressing Neurologic/Psych:AAOX3, grossly no focal neurological deficits Skin: normal color, warm Lab data as noted below. ASSESSMENT & PLAN: Left Foot infected Wound/Cellulitis: Wound culture 10/10/17 + Pseudomonas, Group B beta strep. S/P Debridement and packing by wound care provider blood cultures:No growth to date Continue Zosyn ID and wound care following Continue wound care, wound Vac pain control DM II Hyperglycemia ? Compliance H A1c 8.3 on 10/06/17 Continue ISS, Lantus Increase Lantus for better control of BGs May need basal Insulin therapy upon DC Diabetic education HTN Hx HTN, no current medications BP labile continue lisinopril monitor Acute Kidney Injury: Resolved monitor renal function Avoid nephrotoxic agents as able DVT Px: Heparin SQ Code Status: Full code Disposition: Expect to discharge home when stable Follows with Dr Kirby for routine care Vital Signs: Date Time Temp Pulse Resp B/P (MAP) Pulse Ox O2 Delivery O2 Flow Rate FiO2 10/23/17 15:09 36.7 83 17 128/81 (97) 98 Room Air 10/23/17 08:06 36.7 76 16 136/84 (101) 97 Room Air 10/23/17 08:00 Room Air 10/23/17 00:00 Room Air 10/22/17 23:47 37.1 82 20 127/72 (90) 96 Room Air 10/22/17 20:15 Room Air 10/22/17 16:10 97 Room Air Lab Results: Results Past 24 Hours Test 10/22/17 16:44 10/22/17 20:29 10/23/17 00:11 10/23/17 03:50 Range/Units Bedside Glucose 148 103 246 280 70-99 mg/dl Test 10/23/17 07:03 10/23/17 07:27 10/23/17 11:44 Range/Units Sodium Level 139 136-145 mmol/L Potassium Level 3.9 3.5-5.1 mmol/L Chloride Level 104 98-107 mmol/L Carbon Dioxide Level 30 21-32 mmol/L Anion Gap 5.0 3-11 mmol/L Blood Urea Nitrogen 13 7-18 mg/dl Creatinine 1.09 0.60-1.40 mg/dl Est Creatinine Clear Calc Drug Dose 102.6 ml/min Estimated GFR () 90.0 Estimated GFR (Non- 77.6 BUN/Creatinine Ratio 11.7 10-20 Random Glucose 207 70-99 mg/dl Calcium Level 8.8 8.5-10.1 mg/dl Magnesium Level 1.7 1.8-2.4 mg/dl Bedside Glucose 213 177 70-99 mg/dl
[2017-10-23] MEDS ORDERED: GLIP10TA10 PO (14:43)
[2017-10-23 15:01] VITALS: BMI 28.1
[2017-10-23 15:09] VITALS: BP 128/81; PULSE 83; TEMP 36.7; O2SAT 98
[2017-10-23] MEDS ORDERED: PHARMACY GLYCEMIC MGMT CONSULT PRN (15:36)
--- NOTE | 2017-10-23 15:57 | Pharmacy Progress Note ---
Glycemic: Assessment & Plan Date of Service Oct 23, 2017. Assessment & Plan The patient received 63 units of insulin per day for 10/21/17. The patient received 59 units of insulin per day for 10/22/17. * Basal insulin: was Lantus 15 units every 12 hours * Correctional Insulin: Novolog Correction per scale ACHS + 0000/0400 Goal Range: Low 110 mg/dL - High 140 mg/dL Correction Factor: 25 mg/dL/unit * Prandial insulin: Per carb ratio of 1 unit per 8 grams CHO consumed Provider increased Lantus to 17 units sq q 12hours to start this evening. Pharmacy glycemic service consulted. I agree with slight increase in Lantus. Will gently "tighten" CF to 20mg/dL/unit and CR to 7. Pharmacy will continue to monitor patient daily and write orders per [facility] inpatient glycemic control protocol. Thanks. * Please note that the plan above was derived based on current level of insulin resistance and hospital stress. These recommendations are appropriate for inpatient admission only. Plan of care upon discharge will need to be reassessed to avoid potential outpatient hypo/hyperglycemia.
[2017-10-23 16:00] VITALS: O2SAT 98
--- NOTE | 2017-10-23 19:57 | Infectious Disease Progress Nt ---
Progress Note Date of Service Oct 23, 2017. Subjective Pt evaluation today including: conversation w/ patient, physical exam, chart review, lab review, review of studies, conversation w/ strategic solutions consultant, review of inpatient medication list Patient offering no new complaints today. States pain in his foot has improved. Wound care consultation noted. Tolerating antibiotics without apparent difficulty. Remains afebrile. Blood cultures remain negative to date. All Other Systems: Reviewed and Negative Medications Current Inpatient Medications Medications (Trade) Dose Ordered Sig/Adrian Route Start Time Stop Time Status Last Admin Dose Admin Acetaminophen (Tylenol Tab) 650 mg Q4H PRN PO 10/20/17 11:45 11/19/17 11:44 10/20/17 14:30 650 MG Polyethylene (Miralax Powder Packet) 17 gm DAILY PRN PO 10/20/17 11:45 11/19/17 11:44 Ondansetron HCl (Zofran Inj) 4 mg Q6H PRN IV 10/20/17 11:45 11/19/17 11:44 Insulin Aspart (novoLOG ASPART) SLIDING SCALE If C... ACHS SC 10/20/17 16:30 11/19/17 16:29 10/23/17 12:14 8 UNITS Glucose (Glucose 40% Gel) 15-30 GRAMS 15 GRAMS... UD PRN PO 10/20/17 12:30 11/19/17 12:29 Glucose (Glucose Chew Tab) 4-8 Tablets 4 Tabl... UD PRN PO 10/20/17 12:30 11/19/17 12:29 Dextrose (Dextrose 50% 50ML Syringe) 25-50ML OF 50% DW IV FOR... UD PRN IV 10/20/17 12:30 11/19/17 12:29 Glucagon (Glucagon Inj) 1 mg UD PRN SQ 10/20/17 12:30 11/19/17 12:29 Multivitamins (Multivitamin Tab) 1 tab DAILY PO 10/21/17 09:00 11/20/17 08:59 10/23/17 07:54 1 TAB Tramadol HCl (Ultram Tab) 50 mg Q6 PRN PO 10/20/17 12:30 11/19/17 12:29 10/21/17 00:00 50 MG Piperacillin Sod/ Tazobactam Sod 4.5 gm/Dextrose 120 ml @ 30 mls/hr Q8H IV 10/20/17 20:00 10/30/17 13:59 10/23/17 12:24 30 MLS/HR Miscellaneous Information (Consult) 1 [facility] PRN N/A 10/20/17 13:30 11/19/17 13:29 Heparin Sodium (Porcine) (Heparin Sq 5000 Unit/0.5ml) 5,000 unit Q12 SQ 10/21/17 21:00 11/20/17 20:59 10/23/17 08:01 5,000 UNIT Lisinopril (Zestril Tab) 5 mg QAM PO 10/23/17 09:00 11/22/17 08:59 10/23/17 07:55 5 MG Magnesium Oxide (Mag-Ox Tab) 400 mg BID PO 10/23/17 21:00 10/26/17 20:59 Insulin Glargine (Lantus Solostar Pen) 17 units Q12 SC 10/23/17 21:00 11/19/17 20:59 Miscellaneous Information (Consult Glycemic Management Pharmacy) 1 [facility] PRN N/A 10/23/17 15:36 11/22/17 15:35 Insulin Aspart (novoLOG ASPART) SLIDING SCALE If C... 0000,0400 [place] 10/24/17 00:00 11/23/17 00:00 Objective Vital Signs Date Time Temp Pulse Resp B/P (MAP) Pulse Ox O2 Delivery O2 Flow Rate FiO2 10/23/17 16:00 98 Room Air 10/23/17 15:09 36.7 83 17 128/81 (97) 98 Room Air 10/23/17 08:06 36.7 76 16 136/84 (101) 97 Room Air 10/23/17 08:00 Room Air 10/23/17 00:00 Room Air 10/22/17 23:47 37.1 82 20 127/72 (90) 96 Room Air 10/22/17 20:15 Room Air Physical Exam General Appearance: WD/WN, no apparent distress Eyes: normal inspection, EOMI, sclerae normal ENT: normal ENT inspection, pharynx normal Neck: supple, no adenopathy, thyroid normal, trachea midline Respiratory/Chest: chest non-tender, lungs clear, normal breath sounds, no respiratory distress Cardiovascular: regular rate, rhythm, no gallop, no murmur Abdomen: normal bowel sounds, non tender, soft, no organomegaly Extremities: non-tender, no calf tenderness Neurologic/Psychiatric: alert, normal mood/affect, oriented x 3 Skin: normal color, no rash, + pertinent finding (Decreasing erythema of left foot) Lymphatic: no adenopathy Laboratory Results RUN DATE: 10/22/17 [facility] LAB PAGE 1 RUN TIME: 714 Specimen Inquiry PATIENT: MARNI GODINZE LOC: [id number] U # : [id number] AGE/SX: 52/M ROOM: [facility] REG : 10/20/[address]: Benja Umanzor MD : [id number] BED: 2 DIS : STATUS: ADM IN TLOC: SPEC #: [id number] REAL: 10/20/17-1224 STATUS: RES REQ #: [id number] RECD: 10/20/17-[address]: Anette Joyce PA-C SOURCE: BLOOD ENTR: 10/20/17-[address] [facility] [address]: Tia Willis M.D. [facility]: Bridget Lang, Fan Chandler, Giuseppe Abel DO ORDERED: BLOOD CULTURE Procedure Result Verified Site BLD CULT Preliminary 10/22/17 NO GROWTH TO DATE. Last 24 Hours Test 10/22/17 20:29 10/23/17 00:11 10/23/17 03:50 10/23/17 07:03 Bedside Glucose 103 mg/dl 246 mg/dl 280 mg/dl Sodium Level 139 mmol/L Potassium Level 3.9 mmol/L Chloride Level 104 mmol/L Carbon Dioxide Level 30 mmol/L Anion Gap 5.0 mmol/L Blood Urea Nitrogen 13 mg/dl Creatinine 1.09 mg/dl Est Creatinine Clear Calc Drug Dose 102.6 ml/min Estimated GFR () 90.0 Estimated GFR (Non- 77.6 BUN/Creatinine Ratio 11.7 Random Glucose 207 mg/dl Calcium Level 8.8 mg/dl Magnesium Level 1.7 mg/dl Test 10/23/17 07:27 10/23/17 11:44 10/23/17 16:30 10/23/17 19:40 Bedside Glucose 213 mg/dl 177 mg/dl 198 mg/dl 183 mg/dl Assessment and Plan 52 yo diabetic with infected left foot wound with polymicrobic infection with Pseudomonas, Group B Strep, Bacteroides, and [place]ia. Patient appears to be responding to current IV antibiotics, would continue for now, and hopefully will be able to transition to oral antibiotics in the near future.
[2017-10-23] MEDS ORDERED: INSULIN GLARGINE SOLOSTAR 100 UNITS/ML 3 ML PEN SC SCH (21:00)
[2017-10-23] MEDS: MAGNESIUM OXIDE 400 MG TAB PO SCH (21:43)
[2017-10-23 22:30] VITALS: BP 131/78; PULSE 83; TEMP 37.1; O2SAT 97
[2017-10-24] MEDS: INSULIN ASPART 100 UNITS/ML 3 ML PEN SC SCH ×6 (00:02→20:32)
[2017-10-24] MEDS: PIPERACILL/TAZOBAC IV 4.5 GM in DEXTROSE 5% 100ML 100 ML IV SCH ×3 (03:38→20:32)
[2017-10-24 05:53] LABS: HEMATOCRIT 30.9 % (42-52); HEMOGLOBIN 10.3 g/dL (14.0-18.0); MEAN CELL VOLUME 82.6 fL (80-100); MEAN CORPUSCULAR HEMOGLOBIN 27.5 pg (25-34); MEAN CORPUSCULAR HGB CONC 33.3 g/dl (32-36); MEAN PLATELET VOLUME 9.2 fL (7.4-10.4); PLATELET COUNT 314 K/uL (130-400); RED CELL DISTRIBUTION WIDTH CV 12.9 % (11.5-14.5); RED CELL DISTRIBUTION WIDTH SD 39.4 fL (36.4-46.3); WHITE BLOOD COUNT 5.81 K/uL (4.8-10.8)
[2017-10-24 06:23] LABS: CALCIUM 8.6 mg/dl (8.5-10.1); CREATININE 1.03 mg/dl (0.60-1.40); POTASSIUM 4.4 mmol/L (3.5-5.1)
[2017-10-24 07:06] VITALS: BP 125/73; PULSE 84; TEMP 36.7; O2SAT 99
[2017-10-24] MEDS: MAGNESIUM OXIDE 400 MG TAB PO SCH ×2 (08:28→20:33)
[2017-10-24] MEDS: MULTIVITAMIN TAB PO SCH (08:28)
[2017-10-24] MEDS: LISINOPRIL 5 MG TAB PO SCH (08:28)
[2017-10-24] MEDS: INSULIN GLARGINE SOLOSTAR 100 UNITS/ML 3 ML PEN SC SCH ×2 (08:31→16:03)
[2017-10-24] MEDS: HEPARIN SOD 5000 UNIT/0.5 ML CARP SQ SCH ×2 (08:31→20:36)
[2017-10-24] MEDS ORDERED: METFORMIN HCL 500 MG TAB PO ONE (09:00)
--- NOTE | 2017-10-24 09:12 | Pharmacy Progress Note ---
Pharmacy Glycemic Short Note 2 Date of Service October 24, 2017. OUTPATIENT ANTIDIABETIC REGIMEN: * Compliance? * Metformin 1,00mg PO BIDM * Glipizide 5mg PO BIDM * A1c = 8.3% on 10/06/17 Item Value Date Time Bedside Glucose 198 mg/dl H 10/22/17 0708 Bedside Glucose 215 mg/dl H 10/22/17 1134 Bedside Glucose 148 mg/dl H 10/22/17 1644 Bedside Glucose 103 mg/dl H 10/22/17 2029 Bedside Glucose 246 mg/dl H 10/23/17 0011 Bedside Glucose 280 mg/dl H 10/23/17 0350 Bedside Glucose 213 mg/dl H 10/23/17 0727 Bedside Glucose 177 mg/dl H 10/23/17 1144 Bedside Glucose 198 mg/dl H 10/23/17 1630 ASSESSMENT: * 52yo T2DM male with sub-adequate degree of outpatient control per recent A1c * Goal A1c is <7% based on age/comorbidities * Tight glycemic control is necessary to facilitate wound/infection healing * Pt has been receiving 60-70 units of insulin per day with suboptimal control * Will increase total daily dose to 80 units/day + resume outpatient metformin * Will try to work basal insulin dosing from BID to once daily dosing to simplify regimen for outpatient PLAN FOR INPATIENT GLYCEMIC CONTROL: increase total daily dose to 80 units/day and resume metformin * Resume metformin 1,000mg PO BIDM * Pt tolerating PO and renal function WNL * Basal insulin * Lantus 20 units SQ BID * Will try to work dosing to 30-40 units SQ daily over the next 24hrs * Bolus insulin * NovoLog per scale ACHS or Q6hrs while NPO * Goal Range: Low 110 mg/dL - High 140 mg/dL * Correction Factor: 20 mg/dL/unit * Nutritional / Prandial insulin per carb ratio of 1 unit per 7 grams CHO consumed PLAN FOR DISCHARGE: * Recommend continuing current outpatient antidiabetic medications at discharge * Recommend adding basal insulin to current outpatient regimen for better A1c control * Try to keep dosing once daily for simplicity and to increase compliance * Pharmacy to determine dosing for discharge but at this time, recommend ~ 30- 40 units of basal insulin (Lantus/Basaglar) SQ daily
[2017-10-24] MEDS ORDERED: CARBOHYDRATES FOR HYPOGLYCEMIA PO PRN (09:15)
--- NOTE | 2017-10-24 13:10 | Progress Note ---
Internal Med Progress Note Date of Service: October 24, 2017. Provider Documentation: SUBJECTIVE: The patient was seen and examined in medical floor He was admitted with chronic leg ulcers not been responding to outpatient treatment with history of diabetes He has been getting intravenous antibiotic and feeling better for the last day or 2 He denies any significant symptoms today except some pain in the foot OBJECTIVE: Vital Signs-as noted below Exam: General-no apparent distress Eyes-normal ENT-normal Neck-supple Lungs-clear to auscultate bilaterally Heart-regular, no murmur Abdomen-benign Extremities-bandaged Neuro-alert, awake and oriented 3 No focal neuro deficit Lab data as noted below. ASSESSMENT & PLAN: Left Foot infected Wound/Cellulitis: With polymicrobic infection with Pseudomonas, Group B Strep, Bacteroides, and Finegoldia S/P Debridement and packing by wound care provider Blood cultures:No growth to date Continue Zosyn ID and wound care following-appreciate input and recommendation Continue wound care, wound Vac Clinically a lot better Likely to transition to oral Antibiotic at discharge DM II Hyperglycemia H A1c 8.3 on 10/06/17 Continue ISS, Lantus Increase Lantus for better control of BGs May need basal Insulin therapy upon DC Diabetic education HTN Hx HTN, no current medications BP labile Continue lisinopril Remains stable Acute Kidney Injury: Resolved Monitor renal function Avoid nephrotoxic agents as able Increase Oral Intake of fluids DVT Px: Heparin SQ Code Status: Full code Disposition: Expect to discharge home when stable Follows with Dr Kirby for routine care DISPOSITION Likely discharge in a day or two Vital Signs: Date Time Temp Pulse Resp B/P (MAP) Pulse Ox O2 Delivery O2 Flow Rate FiO2 10/24/17 08:00 Room Air 10/24/17 07:06 36.7 84 16 125/73 (90) 99 Room Air 10/24/17 00:00 Room Air 10/23/17 22:30 37.1 83 18 131/78 (95) 97 Room Air 10/23/17 16:00 98 Room Air 10/23/17 15:09 36.7 83 17 128/81 (97) 98 Room Air Lab Results: Results Past 24 Hours Test 10/23/17 16:30 10/23/17 19:40 10/23/17 23:56 10/24/17 03:42 Range/Units Bedside Glucose 198 183 217 237 70-99 mg/dl Test 10/24/17 05:40 10/24/17 07:22 10/24/17 11:22 Range/Units White Blood Count 5.81 4.8-10.8 K/uL Red Blood Count 3.74 4.7-6.1 M/uL Hemoglobin 10.3 14.0-18.0 g/dL Hematocrit 30.9 42-52 % Mean Corpuscular Volume 82.6 80-100 fL Mean Corpuscular Hemoglobin 27.5 25-34 pg Mean Corpuscular Hemoglobin Concent 33.3 32-36 g/dl RDW Standard Deviation 39.4 36.4-46.3 fL RDW Coefficient of Variation 12.9 11.5-14.5 % Platelet Count 314 130-400 K/uL Mean Platelet Volume 9.2 7.4-10.4 fL Sodium Level 137 136-145 mmol/L Potassium Level 4.4 3.5-5.1 mmol/L Chloride Level 104 98-107 mmol/L Carbon Dioxide Level 30 21-32 mmol/L Anion Gap 3.0 3-11 mmol/L Blood Urea Nitrogen 16 7-18 mg/dl Creatinine 1.03 0.60-1.40 mg/dl Est Creatinine Clear Calc Drug Dose 108.6 ml/min Estimated GFR () 96.3 Estimated GFR (Non- 83.1 BUN/Creatinine Ratio 15.2 10-20 Random Glucose 241 70-99 mg/dl Calcium Level 8.6 8.5-10.1 mg/dl Magnesium Level 1.8 1.8-2.4 mg/dl Bedside Glucose 243 220 70-99 mg/dl
--- NOTE | 2017-10-24 14:55 | Infectious Disease Progress Nt ---
Progress Note Date of Service October 24, 2017. Subjective Pt evaluation today including: conversation w/ patient, physical exam, chart review, lab review, review of studies, conversation w/ windows consultant, review of inpatient medication list Pain in left foot slowly decreasing. Remains afebrile. Tolerating antibiotics without apparent difficulty. Awaiting wound VAC. All Other Systems: Reviewed and Negative Medications Current Inpatient Medications Medications (Trade) Dose Ordered Sig/Adrian Route Start Time Stop Time Status Last Admin Dose Admin Acetaminophen (Tylenol Tab) 650 mg Q4H PRN PO 10/20/17 11:45 11/19/17 11:44 10/20/17 14:30 650 MG Polyethylene (Miralax Powder Packet) 17 gm DAILY PRN PO 10/20/17 11:45 11/19/17 11:44 Ondansetron HCl (Zofran Inj) 4 mg Q6H PRN IV 10/20/17 11:45 11/19/17 11:44 Insulin Aspart (novoLOG ASPART) SLIDING SCALE If C... ACHS SC 10/20/17 16:30 11/19/17 16:29 10/24/17 12:03 9 UNITS Glucose (Glucose 40% Gel) 15-30 GRAMS 15 GRAMS... UD PRN PO 10/20/17 12:30 11/19/17 12:29 Glucose (Glucose Chew Tab) 4-8 Tablets 4 Tabl... UD PRN PO 10/20/17 12:30 11/19/17 12:29 Dextrose (Dextrose 50% 50ML Syringe) 25-50ML OF 50% DW IV FOR... UD PRN IV 10/20/17 12:30 11/19/17 12:29 Glucagon (Glucagon Inj) 1 mg UD PRN SQ 10/20/17 12:30 11/19/17 12:29 Multivitamins (Multivitamin Tab) 1 tab DAILY PO 10/21/17 09:00 11/20/17 08:59 10/24/17 08:28 1 TAB Tramadol HCl (Ultram Tab) 50 mg Q6 PRN PO 10/20/17 12:30 11/19/17 12:29 10/21/17 00:00 50 MG Piperacillin Sod/ Tazobactam Sod 4.5 gm/Dextrose 120 ml @ 30 mls/hr Q8H IV 10/20/17 20:00 10/30/17 13:59 10/24/17 12:04 30 MLS/HR Miscellaneous Information (Consult) 1 ea UD PRN N/A 10/20/17 13:30 11/19/17 13:29 Heparin Sodium (Porcine) (Heparin Sq 5000 Unit/0.5ml) 5,000 unit Q12 SQ 10/21/17 21:00 11/20/17 20:59 10/24/17 08:31 5,000 UNIT Lisinopril (Zestril Tab) 5 mg QAM PO 10/23/17 09:00 11/22/17 08:59 10/24/17 08:28 5 MG Magnesium Oxide (Mag-Ox Tab) 400 mg BID PO 10/23/17 21:00 10/26/17 20:59 10/24/17 08:28 400 MG Miscellaneous Information (Consult Glycemic Management Pharmacy) 1 ea UD PRN N/A 10/23/17 15:36 11/22/17 15:35 Insulin Aspart (novoLOG ASPART) SLIDING SCALE If C... 0000,0400 SC 10/24/17 00:00 11/23/17 00:00 10/24/17 03:47 5 UNITS Insulin Glargine (Lantus Solostar Pen) 20 units BID SC 10/24/17 09:00 10/24/17 23:59 10/24/17 08:31 20 UNITS Metformin HCl (Glucophage Tab) 1,000 mg BIDM PO 10/24/17 17:00 11/23/17 16:59 Insulin Glargine (Lantus Solostar Pen) 40 units DAILY SC 10/25/17 09:00 11/24/17 08:59 Carbohydrates (Carbohydrates For Hypoglycemia) 15-30 GRAMS 15 grams if BSG 54-69... UD PRN PO 10/24/17 09:15 11/23/17 09:14 Objective Vital Signs Date Time Temp Pulse Resp B/P (MAP) Pulse Ox O2 Delivery O2 Flow Rate FiO2 10/24/17 08:00 Room Air 10/24/17 07:06 36.7 84 16 125/73 (90) 99 Room Air 10/24/17 00:00 Room Air 10/23/17 22:30 37.1 83 18 131/78 (95) 97 Room Air 10/23/17 16:00 98 Room Air 10/23/17 15:09 36.7 83 17 128/81 (97) 98 Room Air Physical Exam General Appearance: WD/WN, no apparent distress Eyes: normal inspection, EOMI, sclerae normal ENT: normal ENT inspection, pharynx normal Neck: supple, no adenopathy, thyroid normal, trachea midline Respiratory/Chest: chest non-tender, lungs clear, normal breath sounds, no respiratory distress Cardiovascular: regular rate, rhythm, no gallop, no murmur Abdomen: normal bowel sounds, non tender, soft, no organomegaly Extremities: non-tender, no calf tenderness Neurologic/Psychiatric: alert, oriented x 3 Skin: normal color, no rash, + pertinent finding (Decreasing erythema left foot , no purulence) Lymphatic: no adenopathy Laboratory Results Last 24 Hours Test 10/23/17 16:30 10/23/17 19:40 10/23/17 23:56 10/24/17 03:42 Bedside Glucose 198 mg/dl 183 mg/dl 217 mg/dl 237 mg/dl Test 10/24/17 05:40 10/24/17 07:22 10/24/17 11:22 White Blood Count 5.81 K/uL Red Blood Count 3.74 M/uL Hemoglobin 10.3 g/dL Hematocrit 30.9 % Mean Corpuscular Volume 82.6 fL Mean Corpuscular Hemoglobin 27.5 pg Mean Corpuscular Hemoglobin Concent 33.3 g/dl RDW Standard Deviation 39.4 fL RDW Coefficient of Variation 12.9 % Platelet Count 314 K/uL Mean Platelet Volume 9.2 fL Sodium Level 137 mmol/L Potassium Level 4.4 mmol/L Chloride Level 104 mmol/L Carbon Dioxide Level 30 mmol/L Anion Gap 3.0 mmol/L Blood Urea Nitrogen 16 mg/dl Creatinine 1.03 mg/dl Est Creatinine Clear Calc Drug Dose 108.6 ml/min Estimated GFR () 96.3 Estimated GFR (Non- 83.1 BUN/Creatinine Ratio 15.2 Random Glucose 241 mg/dl Calcium Level 8.6 mg/dl Magnesium Level 1.8 mg/dl Bedside Glucose 243 mg/dl 220 mg/dl Assessment and Plan 52 yo diabetic with infected left foot wound with polymicrobic infection with Pseudomonas, Group B Strep, Bacteroides, and Finegoldia. Patient appears to be responding to current IV antibiotics, would continue for now, and hopefully will be able to transition to oral antibiotics in the near future.
[2017-10-24 15:46] VITALS: BP 131/80; PULSE 77; TEMP 36.5; O2SAT 97
[2017-10-24] MEDS: TRAMADOL HCL 50 MG TAB PO PRN (16:02)
[2017-10-24 16:04] VITALS: Ht 190.5 cm; Wt 102.0 kg
[2017-10-24] MEDS: METFORMIN HCL 500 MG TAB PO SCH (17:06)
[2017-10-25] MEDS: INSULIN ASPART 100 UNITS/ML 3 ML PEN SC SCH ×6 (00:03→20:09)
[2017-10-25 01:05] VITALS: BP 128/79; PULSE 84; TEMP 36.7; O2SAT 96
[2017-10-25] MEDS: PIPERACILL/TAZOBAC IV 4.5 GM in DEXTROSE 5% 100ML 100 ML IV SCH ×3 (03:53→20:09)
[2017-10-25 07:18] VITALS: BP 147/89; PULSE 75; TEMP 36.7; O2SAT 93
[2017-10-25] MEDS: METFORMIN HCL 500 MG TAB PO SCH ×2 (08:48→17:01)
[2017-10-25] MEDS: MULTIVITAMIN TAB PO SCH (08:48)
[2017-10-25] MEDS: MAGNESIUM OXIDE 400 MG TAB PO SCH ×2 (08:48→20:09)
[2017-10-25] MEDS: LISINOPRIL 5 MG TAB PO SCH (08:52)
[2017-10-25] MEDS: HEPARIN SOD 5000 UNIT/0.5 ML CARP SQ SCH ×2 (08:52→20:12)
[2017-10-25] MEDS ORDERED: INSULIN GLARGINE SOLOSTAR 100 UNITS/ML 3 ML PEN SC SCH (09:00)
--- NOTE | 2017-10-25 12:42 | Progress Note ---
Internal Med Progress Note Date of Service: October 25, 2017. Provider Documentation: SUBJECTIVE: The patient was seen and examined in medical floor He was admitted with chronic leg ulcers not been responding to outpatient treatment with history of diabetes He has been getting intravenous antibiotic and feeling better for the last day or 2 He denies any significant symptoms today except some pain in the foot 10/25:Clinically better Foot pain is improved and denies any other symptoms OBJECTIVE: Vital Signs-as noted below Exam: General-no apparent distress Eyes-normal ENT-normal Neck-supple Lungs-clear to auscultate bilaterally Heart-regular, no murmur Abdomen-benign Extremities-Left foot bandaged and has wound VAC placed Neuro-alert, awake and oriented 3 No focal neuro deficit Lab data as noted below. ASSESSMENT & PLAN: Left Foot infected Wound/Cellulitis: With polymicrobic infection with Pseudomonas, Group B Strep, Bacteroides, and Finegoldia S/P Debridement and packing by wound care provider Blood cultures:No growth to date Continue Zosyn ID and wound care following-appreciate input and recommendation Continue wound care, wound VAC Likely to transition to oral Antibiotic at discharge Clinically a lot better Await Wound Care recommendations before discharge DM II Hyperglycemia H A1c 8.3 on 10/06/17 Continue ISS, Lantus Increase Lantus for better control of BGs May need basal Insulin therapy upon DC Diabetic education Blood sugars remains stable HTN Hx HTN, no current medications BP labile Continue lisinopril Remains stable Acute Kidney Injury: Resolved Monitor renal function Avoid nephrotoxic agents as able Increase Oral Intake of fluids DVT Px: Heparin SQ Code Status: Full code Disposition: Expect to discharge home when stable Follows with Dr Kirby for routine care DISPOSITION Likely discharge in a day or two Vital Signs: Date Time Temp Pulse Resp B/P (MAP) Pulse Ox O2 Delivery O2 Flow Rate FiO2 10/25/17 08:00 Room Air 10/25/17 07:18 36.7 75 18 147/89 (108) 93 10/25/17 01:05 36.7 84 18 128/79 (95) 96 Room Air 10/25/17 00:14 Room Air 10/24/17 16:20 Room Air 10/24/17 15:46 36.5 77 18 131/80 (97) 97 Room Air Lab Results: Results Past 24 Hours Test 10/24/17 16:44 10/24/17 20:00 10/24/17 23:46 10/25/17 03:44 Range/Units Bedside Glucose 111 86 169 144 70-99 mg/dl Test 10/25/17 07:28 10/25/17 11:16 Range/Units Bedside Glucose 151 160 70-99 mg/dl
--- NOTE | 2017-10-25 14:27 | Infectious Disease Progress Nt ---
Progress Note Date of Service October 25, 2017. Subjective Pt evaluation today including: conversation w/ patient, physical exam, chart review, lab review, review of studies, conversation w/ programmer analyst consultant, review of inpatient medication list Offers no new complaints today. Pain in foot improving. No fever. Tolerating antibiotic without apparent difficulty. All Other Systems: Reviewed and Negative Medications Current Inpatient Medications Medications (Trade) Dose Ordered Sig/Adrian Route Start Time Stop Time Status Last Admin Dose Admin Acetaminophen (Tylenol Tab) 650 mg Q4H PRN PO 10/20/17 11:45 11/19/17 11:44 10/20/17 14:30 650 MG Polyethylene (Miralax Powder Packet) 17 gm DAILY PRN PO 10/20/17 11:45 11/19/17 11:44 Ondansetron HCl (Zofran Inj) 4 mg Q6H PRN IV 10/20/17 11:45 11/19/17 11:44 Insulin Aspart (novoLOG ASPART) SLIDING SCALE If C... ACHS SC 10/20/17 16:30 11/19/17 16:29 10/25/17 12:35 9 UNITS Glucose (Glucose 40% Gel) 15-30 GRAMS 15 GRAMS... UD PRN PO 10/20/17 12:30 11/19/17 12:29 Glucose (Glucose Chew Tab) 4-8 Tablets 4 Tabl... UD PRN PO 10/20/17 12:30 11/19/17 12:29 Dextrose (Dextrose 50% 50ML Syringe) 25-50ML OF 50% DW IV FOR... UD PRN IV 10/20/17 12:30 11/19/17 12:29 Glucagon (Glucagon Inj) 1 mg UD PRN SQ 10/20/17 12:30 11/19/17 12:29 Multivitamins (Multivitamin Tab) 1 tab DAILY PO 10/21/17 09:00 11/20/17 08:59 10/25/17 08:48 1 TAB Tramadol HCl (Ultram Tab) 50 mg Q6 PRN PO 10/20/17 12:30 11/19/17 12:29 10/24/17 16:02 50 MG Piperacillin Sod/ Tazobactam Sod 4.5 gm/Dextrose 120 ml @ 30 mls/hr Q8H IV 4/27/18 20:00 10/30/17 13:59 10/25/17 12:29 30 MLS/HR Miscellaneous Information (Consult) 1 ea UD PRN N/A 10/20/17 13:30 11/19/17 13:29 Heparin Sodium (Porcine) (Heparin Sq 5000 Unit/0.5ml) 5,000 unit Q12 SQ 10/21/17 21:00 11/20/17 20:59 10/25/17 08:52 5,000 UNIT Lisinopril (Zestril Tab) 5 mg QAM PO 10/23/17 09:00 11/22/17 08:59 10/25/17 08:52 5 MG Magnesium Oxide (Mag-Ox Tab) 400 mg BID PO 10/23/17 21:00 10/26/17 20:59 10/25/17 08:48 400 MG Miscellaneous Information (Consult Glycemic Management Pharmacy) 1 ea PRN N/A 10/23/17 15:36 11/22/17 15:35 Metformin HCl (Glucophage Tab) 1,000 mg BIDM PO 10/24/17 17:00 11/23/17 16:59 10/25/17 08:48 1,000 MG Insulin Glargine (Lantus Solostar Pen) 40 units DAILY SC 10/25/17 09:00 11/24/17 08:59 10/25/17 08:51 40 UNITS Carbohydrates (Carbohydrates For Hypoglycemia) 15-30 GRAMS 15 grams if BSG 54-69... UD PRN PO 10/24/17 09:15 11/23/17 09:14 Objective Vital Signs Date Time Temp Pulse Resp B/P (MAP) Pulse Ox O2 Delivery O2 Flow Rate FiO2 10/25/17 08:00 Room Air 10/25/17 07:18 36.7 75 18 147/89 (108) 93 10/25/17 01:05 36.7 84 18 128/79 (95) 96 Room Air 10/25/17 00:14 Room Air 10/24/17 16:20 Room Air 10/24/17 15:46 36.5 77 18 131/80 (97) 97 Room Air Physical Exam General Appearance: WD/WN, no apparent distress Eyes: normal inspection, EOMI, sclerae normal ENT: normal ENT inspection, hearing grossly normal, pharynx normal Neck: supple, no adenopathy, thyroid normal, trachea midline Respiratory/Chest: chest non-tender, lungs clear, normal breath sounds, no respiratory distress Cardiovascular: regular rate, rhythm, no gallop, no murmur Abdomen: normal bowel sounds, non tender, soft, no organomegaly Extremities: non-tender, no calf tenderness Neurologic/Psychiatric: alert, oriented x 3 Skin: normal color, no rash, + pertinent finding (Erythema left foot fading) Lymphatic: no adenopathy Laboratory Results Last 24 Hours Test 10/24/17 16:44 10/24/17 20:00 10/24/17 23:46 10/25/17 03:44 Bedside Glucose 111 mg/dl 86 mg/dl 169 mg/dl 144 mg/dl Test 10/25/17 07:28 10/25/17 11:16 Bedside Glucose 151 mg/dl 160 mg/dl Assessment and Plan 52 yo diabetic with infected left foot wound with polymicrobic infection with Pseudomonas, Group B Strep, Bacteroides, and Finegoldia. Patient appears to be responding to current IV antibiotics, to consider transition to oral antibiotics and would suggest combination of levofloxacin and metronidazole, likely for at least several weeks.
[2017-10-25 16:14] VITALS: BP 137/72; PULSE 83; TEMP 36.6; O2SAT 95
[2017-10-26 00:17] VITALS: BP 148/79; PULSE 83; TEMP 36.7; O2SAT 98
[2017-10-26] MEDS: PIPERACILL/TAZOBAC IV 4.5 GM in DEXTROSE 5% 100ML 100 ML IV SCH ×3 (03:37→20:32)
[2017-10-26 07:25] VITALS: BP 147/84; PULSE 79; TEMP 36.7; O2SAT 97
[2017-10-26 07:41] LABS: HEMATOCRIT 30.4 % (42-52); HEMOGLOBIN 9.8 g/dL (14.0-18.0); MEAN CELL VOLUME 84.4 fL (80-100); MEAN CORPUSCULAR HEMOGLOBIN 27.2 pg (25-34); MEAN CORPUSCULAR HGB CONC 32.2 g/dl (32-36); MEAN PLATELET VOLUME 9.2 fL (7.4-10.4); PLATELET COUNT 313 K/uL (130-400); RED CELL DISTRIBUTION WIDTH CV 13.3 % (11.5-14.5); RED CELL DISTRIBUTION WIDTH SD 40.6 fL (36.4-46.3); WHITE BLOOD COUNT 4.83 K/uL (4.8-10.8)
[2017-10-26] MEDS: METFORMIN HCL 500 MG TAB PO SCH ×2 (08:00→17:14)
[2017-10-26] MEDS: MULTIVITAMIN TAB PO SCH (08:07)
[2017-10-26] MEDS: HEPARIN SOD 5000 UNIT/0.5 ML CARP SQ SCH ×2 (08:13→20:33)
[2017-10-26] MEDS: INSULIN ASPART 100 UNITS/ML 3 ML PEN SC SCH ×4 (08:14→20:31)
[2017-10-26] MEDS: MAGNESIUM OXIDE 400 MG TAB PO SCH (08:18)
[2017-10-26] MEDS: LISINOPRIL 5 MG TAB PO SCH (08:18)
[2017-10-26 08:19] LABS: CALCIUM 8.5 mg/dl (8.5-10.1); PHOSPHORUS 3.7 mg/dl (2.5-4.9); POTASSIUM 4.1 mmol/L (3.5-5.1)
--- NOTE | 2017-10-26 11:00 | Pharmacy Progress Note ---
Pharmacy Glycemic Short Note 2 Date of Service October 26, 2017. OUTPATIENT ANTIDIABETIC REGIMEN: * Compliance? * Metformin 1,00mg PO BIDM * Glipizide 5mg PO BIDM * A1c = 8.3% on 10/06/17 Test 10/25/17 11:16 10/25/17 16:40 10/25/17 20:04 10/26/17 07:15 Bedside Glucose 160 mg/dl (70-99) 71 mg/dl (70-99) 95 mg/dl (70-99) Random Glucose 84 mg/dl (70-99) Test 10/26/17 07:41 Bedside Glucose 94 mg/dl (70-99) ASSESSMENT: 10/26/17 * Mr. Martinez received 61 units of insulin yesterday, in addition to metformin * RN called this AM b/c patient ate breakfast but had an episode of emesis immediately after - AM Novolog and metformin were held * I held the Lantus to be given later this AM * Pre-lunch BSG up to 148 mg/dL. Will plan to resume daily Lantus but at a 20% reduction. * CF/CR will be changed based on est TDD ~60 units PLAN FOR INPATIENT GLYCEMIC CONTROL: * Continue metformin 1,000mg PO BIDM * Basal insulin * Lantus 32 units once daily * Bolus insulin * NovoLog per scale ACHS or Q6hrs while NPO * Goal Range: Low 110 mg/dL - High 140 mg/dL * LOOSEN Correction Factor: 25 mg/dL/unit * LOOSEN Nutritional / Prandial insulin per carb ratio of 1 unit per 9 grams CHO consumed PLAN FOR DISCHARGE: * Recommend continuing current outpatient antidiabetic medications at discharge * Recommend adding basal insulin to current outpatient regimen for better A1c control * Try to keep dosing once daily for simplicity and to increase compliance * At this time, recommend ~ 35 units of basal insulin (Lantus/Basaglar) SQ daily
--- NOTE | 2017-10-26 11:58 | Progress Note ---
Internal Med Progress Note Date of Service: October 26, 2017. Provider Documentation: SUBJECTIVE: The patient was seen and examined in medical floor He was admitted with chronic leg ulcers not been responding to outpatient treatment with history of diabetes He has been getting intravenous antibiotic and feeling better for the last day or 2 He denies any significant symptoms today except some pain in the foot 10/25:Clinically better Foot pain is improved and denies any other symptoms / Left foot ulcer is seen On the lateral aspect-about 1 cm sq with 0.5 cm deep ,no surrounding inflammation Denies any symptoms OBJECTIVE: Vital Signs-as noted below Exam: General-no apparent distress Eyes-normal ENT-normal Neck-supple Lungs-clear to auscultate bilaterally Heart-regular, no murmur Abdomen-benign Extremities-Left foot bandaged and has wound VAC placed Left foot ulcer as above Neuro-alert, awake and oriented 3 No focal neuro deficit Lab data as noted below. ASSESSMENT & PLAN: Left Foot infected Wound/Cellulitis: With polymicrobic infection with Pseudomonas, Group B Strep, Bacteroides, and Finegoldia S/P Debridement and packing by wound care provider Blood cultures:No growth to date Continue Zosyn ID and wound care following-appreciate input and recommendation Continue wound care, wound VAC Likely to transition to oral Antibiotic at discharge Clinically a lot better Await Wound Care recommendations before discharge Will do wound VAC for today-/ and tomorrow -10/27 Changed to home VAC and likely discharge on Monday --Antibiotic as per ID recommendation DM II Hyperglycemia H A1c 8.3 on 10/06/17 Continue ISS, Lantus Increase Lantus for better control of BGs May need basal Insulin therapy upon DC Diabetic education Blood sugars remains stable HTN Hx HTN, no current medications BP labile Continue lisinopril Remains stable Acute Kidney Injury: Resolved Monitor renal function Avoid nephrotoxic agents as able Increase Oral Intake of fluids DVT Px: Heparin SQ Code Status: Full code Disposition: Expect to discharge home when stable Follows with Dr Kirby for routine care DISPOSITION Likely discharge in a day or two Vital Signs: Date Time Temp Pulse Resp B/P (MAP) Pulse Ox O2 Delivery O2 Flow Rate FiO2 10/26/17 08:00 Room Air 10/26/17 07:25 36.7 79 16 147/84 (105) 97 Room Air 10/26/17 00:17 36.7 83 18 148/79 (102) 98 Room Air 10/26/17 00:03 Room Air 10/25/17 16:30 Room Air 10/25/17 16:14 36.6 83 18 137/72 (93) 95 Room Air Lab Results: Results Past 24 Hours Test 10/25/17 16:40 10/25/17 20:04 10/26/17 07:15 10/26/17 07:41 Range/Units Bedside Glucose 71 95 94 70-99 mg/dl White Blood Count 4.83 4.8-10.8 K/uL Red Blood Count 3.60 4.7-6.1 M/uL Hemoglobin 9.8 14.0-18.0 g/dL Hematocrit 30.4 42-52 % Mean Corpuscular Volume 84.4 80-100 fL Mean Corpuscular Hemoglobin 27.2 25-34 pg Mean Corpuscular Hemoglobin Concent 32.2 32-36 g/dl RDW Standard Deviation 40.6 36.4-46.3 fL RDW Coefficient of Variation 13.3 11.5-14.5 % Platelet Count 313 130-400 K/uL Mean Platelet Volume 9.2 7.4-10.4 fL Sodium Level 142 136-145 mmol/L Potassium Level 4.1 3.5-5.1 mmol/L Chloride Level 109 98-107 mmol/L Carbon Dioxide Level 30 21-32 mmol/L Anion Gap 3.0 3-11 mmol/L Blood Urea Nitrogen 16 7-18 mg/dl Creatinine 1.00 0.60-1.40 mg/dl Est Creatinine Clear Calc Drug Dose 111.8 ml/min Estimated GFR () 99.8 Estimated GFR (Non- 86.2 BUN/Creatinine Ratio 15.6 10-20 Random Glucose 84 70-99 mg/dl Calcium Level 8.5 8.5-10.1 mg/dl Phosphorus Level 3.7 2.5-4.9 mg/dl Magnesium Level 1.9 1.8-2.4 mg/dl Test 10/26/17 11:21 Range/Units Bedside Glucose 148 70-99 mg/dl
[2017-10-26] MEDS: INSULIN GLARGINE SOLOSTAR 100 UNITS/ML 3 ML PEN SC SCH (12:17)
[2017-10-26 16:01] VITALS: BP 129/78; PULSE 82; TEMP 36.8; O2SAT 98
--- NOTE | 2017-10-26 20:42 | Infectious Disease Progress Nt ---
Progress Note Date of Service October 26, 2017. Subjective Pt evaluation today including: conversation w/ patient, physical exam, chart review, lab review, review of studies, conversation w/ consumer services consultant, review of inpatient medication list Patient states that pain in left foot slowly improving. Currently 2/10 in intensity. Remains afebrile. Tolerating antibiotics without apparent difficulty. All Other Systems: Reviewed and Negative Medications Current Inpatient Medications Medications (Trade) Dose Ordered Sig/Adrian Route Start Time Stop Time Status Last Admin Dose Admin Acetaminophen (Tylenol Tab) 650 mg Q4H PRN PO 10/20/17 11:45 11/19/17 11:44 10/20/17 14:30 650 MG Polyethylene (Miralax Powder Packet) 17 gm DAILY PRN PO 10/20/17 11:45 11/19/17 11:44 Ondansetron HCl (Zofran Inj) 4 mg Q6H PRN IV 10/20/17 11:45 11/19/17 11:44 Insulin Aspart (novoLOG ASPART) SLIDING SCALE If C... ACHS SC 10/20/17 16:30 11/19/17 16:29 10/26/17 17:15 11 UNITS Glucose (Glucose 40% Gel) 15-30 GRAMS 15 GRAMS... UD PRN PO 10/20/17 12:30 11/19/17 12:29 Glucose (Glucose Chew Tab) 4-8 Tablets 4 Tabl... UD PRN PO 10/20/17 12:30 11/19/17 12:29 Dextrose (Dextrose 50% 50ML Syringe) 25-50ML OF 50% DW IV FOR... UD PRN IV 10/20/17 12:30 11/19/17 12:29 Glucagon (Glucagon Inj) 1 mg UD PRN SQ 10/20/17 12:30 11/19/17 12:29 Multivitamins (Multivitamin Tab) 1 tab DAILY PO 10/21/17 09:00 11/20/17 08:59 10/26/17 08:07 1 TAB Tramadol HCl (Ultram Tab) 50 mg Q6 PRN PO 10/20/17 12:30 11/19/17 12:29 10/24/17 16:02 50 MG Piperacillin Sod/ Tazobactam Sod 4.5 gm/Dextrose 120 ml @ 30 mls/hr Q8H IV 10/20/17 20:00 10/30/17 13:59 10/26/17 20:32 30 MLS/HR Miscellaneous Information (Consult) 1 ea UD PRN N/A 10/20/17 13:30 11/19/17 13:29 Heparin Sodium (Porcine) (Heparin Sq 5000 Unit/0.5ml) 5,000 unit Q12 SQ 10/21/17 21:00 11/20/17 20:59 10/26/17 20:33 5,000 UNIT Lisinopril (Zestril Tab) 5 mg QAM PO 10/23/17 09:00 11/22/17 08:59 10/26/17 08:18 5 MG Magnesium Oxide (Mag-Ox Tab) 400 mg BID PO 10/23/17 21:00 10/26/17 20:59 10/26/17 08:18 400 MG Miscellaneous Information (Consult Glycemic Management Pharmacy) 1 ea UD PRN N/A 10/23/17 15:36 11/22/17 15:35 Metformin HCl (Glucophage Tab) 1,000 mg BIDM PO 10/24/17 17:00 11/23/17 16:59 10/26/17 17:14 1,000 MG Carbohydrates (Carbohydrates For Hypoglycemia) 15-30 GRAMS 15 grams if BSG 54-69... UD PRN PO 10/24/17 09:15 11/23/17 09:14 Insulin Glargine (Lantus Solostar Pen) 32 units DAILY SC 10/26/17 12:04 11/25/17 12:03 10/26/17 12:17 32 UNITS Objective Vital Signs Date Time Temp Pulse Resp B/P (MAP) Pulse Ox O2 Delivery O2 Flow Rate FiO2 10/26/17 16:01 36.8 82 14 129/78 (95) 98 Room Air 10/26/17 16:00 Room Air 10/26/17 08:00 Room Air 10/26/17 07:25 36.7 79 16 147/84 (105) 97 Room Air 10/26/17 00:17 36.7 83 18 148/79 (102) 98 Room Air 10/26/17 00:03 Room Air Physical Exam General Appearance: WD/WN, no apparent distress Eyes: normal inspection, EOMI, sclerae normal ENT: normal ENT inspection, pharynx normal Neck: supple, no adenopathy, thyroid normal, trachea midline Respiratory/Chest: chest non-tender, lungs clear, normal breath sounds, no respiratory distress Cardiovascular: regular rate, rhythm, no gallop, no murmur Abdomen: normal bowel sounds, non tender, soft, no organomegaly Extremities: non-tender, no calf tenderness Neurologic/Psychiatric: alert, oriented x 3 Skin: normal color, no rash, + pertinent finding (Left foot wound slowly improving) Lymphatic: no adenopathy Laboratory Results Last 24 Hours Test 10/26/17 07:15 10/26/17 07:41 10/26/17 11:21 10/26/17 16:41 White Blood Count 4.83 K/uL Red Blood Count 3.60 M/uL Hemoglobin 9.8 g/dL Hematocrit 30.4 % Mean Corpuscular Volume 84.4 fL Mean Corpuscular Hemoglobin 27.2 pg Mean Corpuscular Hemoglobin Concent 32.2 g/dl RDW Standard Deviation 40.6 fL RDW Coefficient of Variation 13.3 % Platelet Count 313 K/uL Mean Platelet Volume 9.2 fL Sodium Level 142 mmol/L Potassium Level 4.1 mmol/L Chloride Level 109 mmol/L Carbon Dioxide Level 30 mmol/L Anion Gap 3.0 mmol/L Blood Urea Nitrogen 16 mg/dl Creatinine 1.00 mg/dl Est Creatinine Clear Calc Drug Dose 111.8 ml/min Estimated GFR () 99.8 Estimated GFR (Non- 86.2 BUN/Creatinine Ratio 15.6 Random Glucose 84 mg/dl Calcium Level 8.5 mg/dl Phosphorus Level 3.7 mg/dl Magnesium Level 1.9 mg/dl Bedside Glucose 94 mg/dl 148 mg/dl 197 mg/dl Test 10/26/17 20:29 Bedside Glucose 117 mg/dl Assessment and Plan 52 yo diabetic with infected left foot wound with polymicrobic infection with Pseudomonas, Group B Strep, Bacteroides, and Finegoldia. Patient appears to be responding to current IV antibiotics, to consider transition to oral antibiotics and would suggest combination of levofloxacin and metronidazole, likely for at least several weeks.
[2017-10-26 23:20] VITALS: BP 152/91; PULSE 80; TEMP 36.5; O2SAT 98
[2017-10-27] MEDS: PIPERACILL/TAZOBAC IV 4.5 GM in DEXTROSE 5% 100ML 100 ML IV SCH ×2 (03:58→12:19)
[2017-10-27 07:08] VITALS: BP 165/95; PULSE 82; TEMP 36.6; O2SAT 97
[2017-10-27 08:00] VITALS: O2SAT 97
[2017-10-27] MEDS: METFORMIN HCL 500 MG TAB PO SCH ×2 (08:06→17:07)
[2017-10-27] MEDS: MULTIVITAMIN TAB PO SCH (08:06)
[2017-10-27] MEDS: LISINOPRIL 5 MG TAB PO SCH (08:06)
[2017-10-27] MEDS: INSULIN ASPART 100 UNITS/ML 3 ML PEN SC SCH ×4 (08:17→21:54)
[2017-10-27] MEDS: INSULIN GLARGINE SOLOSTAR 100 UNITS/ML 3 ML PEN SC SCH (08:18)
[2017-10-27] MEDS: HEPARIN SOD 5000 UNIT/0.5 ML CARP SQ SCH ×2 (09:00→21:54)
--- NOTE | 2017-10-27 10:12 | Pharmacy Progress Note ---
Pharmacy Glycemic Short Note 2 Date of Service October 27, 2017. OUTPATIENT ANTIDIABETIC REGIMEN: * Compliance? * Metformin 1,00mg PO BIDM * Glipizide 5mg PO BIDM * A1c = 8.3% on 10/06/17 Test 10/26/17 11:21 10/26/17 16:41 10/26/17 20:29 10/27/17 07:45 Bedside Glucose 148 mg/dl (70-99) 197 mg/dl (70-99) 117 mg/dl (70-99) 143 mg/dl (70-99) ASSESSMENT: 10/27/17 * Pt received 50 units of insulin yesterday and metformin po, BSGs at goal, no changes needed today 10/26/17 * Mr. Martinez received 61 units of insulin yesterday, in addition to metformin * RN called this AM b/c patient ate breakfast but had an episode of emesis immediately after - AM Novolog and metformin were held * I held the Lantus to be given later this AM * Pre-lunch BSG up to 148 mg/dL. Will plan to resume daily Lantus but at a 20% reduction. * CF/CR will be changed based on est TDD ~60 units PLAN FOR INPATIENT GLYCEMIC CONTROL: * Metformin 1,000mg PO BIDM * Basal insulin * Lantus 32 units once daily * Bolus insulin * NovoLog per scale ACHS or Q6hrs while NPO * Goal Range: Low 110 mg/dL - High 140 mg/dL * Correction Factor: 25 mg/dL/unit * Nutritional / Prandial insulin per carb ratio of 1 unit per 9 grams CHO consumed PLAN FOR DISCHARGE: * Recommend continuing current outpatient antidiabetic medications at discharge * Recommend adding basal insulin to current outpatient regimen for better A1c control * Try to keep dosing once daily for simplicity and to increase compliance * At this time, recommend ~ 35 units of basal insulin (Lantus/Basaglar) SQ daily
--- NOTE | 2017-10-27 15:28 | Progress Note ---
Internal Med Progress Note Date of Service: October 27, 2017. Provider Documentation: SUBJECTIVE: The patient was seen and examined in medical floor He was admitted with chronic leg ulcers not been responding to outpatient treatment with history of diabetes He has been getting intravenous antibiotic and feeling better for the last day or 2 He denies any significant symptoms today except some pain in the foot 5/2:Clinically better Foot pain is improved and denies any other symptoms /3 Left foot ulcer is seen On the lateral aspect-about 1 cm sq with 0.5 cm deep ,no surrounding inflammation Denies any symptoms / Denies any symptoms Waiting to go home tomorrow OBJECTIVE: Vital Signs-as noted below Exam: General-no apparent distress Eyes-normal ENT-normal Neck-supple Lungs-clear to auscultate bilaterally Heart-regular, no murmur Abdomen-benign Extremities-Left foot bandaged and has wound VAC placed Left foot ulcer as above Neuro-alert, awake and oriented 3 No focal neuro deficit Lab data as noted below. ASSESSMENT & PLAN: Left Foot infected Wound/Cellulitis: With polymicrobic infection with Pseudomonas, Group B Strep, Bacteroides, and Finegoldia S/P Debridement and packing by wound care provider Blood cultures:No growth to date Continue Zosyn ID and wound care following-appreciate input and recommendation Continue wound care, wound VAC Likely to transition to oral Antibiotic at discharge Clinically a lot better Await Wound Care recommendations before discharge Will do wound VAC for today-53/ and tomorrow -10/27 Changed to home VAC and likely discharge on Monday --Antibiotic as per ID recommendation Oral antibiotics started-for 3-4 weeks ,Zosyn stopped Likely discharge tomorrow Wound care as per Wound care provider DM II Hyperglycemia H A1c 8.3 on 10/06/17 Continue ISS, Lantus Increase Lantus for better control of BGs May need basal Insulin therapy upon DC Diabetic education Blood sugars remains stable HTN Hx HTN, no current medications BP labile Continue lisinopril Upper limit today otherwise stable Acute Kidney Injury: Resolved Monitor renal function Avoid nephrotoxic agents as able Increase Oral Intake of fluids DVT Px: Heparin SQ Code Status: Full code Disposition: Expect to discharge home when stable Follows with Dr Kirby for routine care DISPOSITION Likely discharge in a day or two Vital Signs: Date Time Temp Pulse Resp B/P (MAP) Pulse Ox O2 Delivery O2 Flow Rate FiO2 10/27/17 07:08 36.6 82 18 165/95 (118) 97 Room Air 10/27/17 00:00 Room Air 10/26/17 23:20 36.5 80 18 152/91 (111) 98 Room Air 10/26/17 16:01 36.8 82 14 129/78 (95) 98 Room Air 10/26/17 16:00 Room Air Lab Results: Results Past 24 Hours Test 10/26/17 16:41 10/26/17 20:29 10/27/17 07:45 10/27/17 11:39 Range/Units Bedside Glucose 197 117 143 186 70-99 mg/dl
[2017-10-27 15:30] VITALS: BP 130/80; PULSE 80; TEMP 36.9; O2SAT 95
[2017-10-27] MEDS ORDERED: LEVOFLOXACIN 750 MG TAB PO ONE (15:45)
[2017-10-27] MEDS ORDERED: METRONIDAZOLE 500 MG TAB PO ONE (15:45)
[2017-10-27 16:00] VITALS: O2SAT 97
[2017-10-27] MEDS: METRONIDAZOLE 500 MG TAB PO SCH (21:53)
[2017-10-27 22:40] VITALS: BP 139/83; PULSE 82; TEMP 36.7; O2SAT 97
[2017-10-28 06:12] LABS: HEMATOCRIT 29.8 % (42-52); HEMOGLOBIN 9.6 g/dL (14.0-18.0); MEAN CELL VOLUME 84.7 fL (80-100); MEAN CORPUSCULAR HEMOGLOBIN 27.3 pg (25-34); MEAN CORPUSCULAR HGB CONC 32.2 g/dl (32-36); MEAN PLATELET VOLUME 9.5 fL (7.4-10.4); PLATELET COUNT 290 K/uL (130-400); RED CELL DISTRIBUTION WIDTH CV 13.7 % (11.5-14.5); RED CELL DISTRIBUTION WIDTH SD 41.5 fL (36.4-46.3); WHITE BLOOD COUNT 5.24 K/uL (4.8-10.8)
[2017-10-28 06:39] LABS: CALCIUM 8.2 mg/dl (8.5-10.1); CREATININE 0.95 mg/dl (0.60-1.40)
[2017-10-28 06:41] LABS: PHOSPHORUS 2.9 mg/dl (2.5-4.9)
[2017-10-28 07:34] VITALS: BP 137/72; PULSE 82; TEMP 36.8; O2SAT 96
[2017-10-28] MEDS: LISINOPRIL 5 MG TAB PO SCH (08:16)
[2017-10-28] MEDS: METRONIDAZOLE 500 MG TAB PO SCH (08:16)
[2017-10-28] MEDS: MULTIVITAMIN TAB PO SCH (08:16)
[2017-10-28] MEDS: METFORMIN HCL 500 MG TAB PO SCH (08:17)
[2017-10-28] MEDS: HEPARIN SOD 5000 UNIT/0.5 ML CARP SQ SCH ×2 (08:25→08:38)
[2017-10-28] MEDS: INSULIN ASPART 100 UNITS/ML 3 ML PEN SC SCH ×2 (08:25→12:18)
[2017-10-28] MEDS ORDERED: LANTUS PER UNIT CHARGE SQ SCH (09:00)
[2017-10-28] MEDS ORDERED: LEVOFLOXACIN 750 MG TAB PO SCH (11:00)
[2017-10-28] MEDS ORDERED: MAGNESIUM SULFATE 1GM / D5W 100 ML IV ONE (11:15)
--- NOTE | 2017-10-28 12:47 | Progress Note ---
Internal Med Progress Note Date of Service: October 28, 2017. Provider Documentation: SUBJECTIVE: The patient was seen and examined in medical floor He was admitted with chronic leg ulcers not been responding to outpatient treatment with history of diabetes He has been getting intravenous antibiotic and feeling better for the last day or 2 He denies any significant symptoms today except some pain in the foot 10/25:Clinically better Foot pain is improved and denies any other symptoms 10/26 Left foot ulcer is seen On the lateral aspect-about 1 cm sq with 0.5 cm deep ,no surrounding inflammation Denies any symptoms 10/27 Denies any symptoms Waiting to go home tomorrow 10/28 Denies any complains Wound VAC changed and modified to Home VAC OBJECTIVE: Vital Signs-as noted below Exam: General-no apparent distress Eyes-normal ENT-normal Neck-supple Lungs-clear to auscultate bilaterally Heart-regular, no murmur Abdomen-benign Extremities-Left foot bandaged and has wound VAC placed Left foot ulcer as above Neuro-alert, awake and oriented 3 No focal neuro deficit Lab data as noted below. ASSESSMENT & PLAN: Left Foot infected Wound/Cellulitis: With polymicrobic infection with Pseudomonas, Group B Strep, Bacteroides, and Finegoldia S/P Debridement and packing by wound care provider Blood cultures:No growth to date Continue Zosyn ID and wound care following-appreciate input and recommendation Continue wound care, wound VAC Likely to transition to oral Antibiotic at discharge Clinically a lot better Await Wound Care recommendations before discharge Will do wound VAC for today-53/ and tomorrow -10/27 Changed to home VAC and likely discharge on Monday --Antibiotic as per ID recommendation Oral antibiotics started-for 3-4 weeks ,Zosyn stopped Likely discharge tomorrow Wound care as per Wound care provider -has OP appointment Tolerating oral antibiotics well DM II Hyperglycemia H A1c 8.3 on 10/06/17 Continue ISS, Lantus Increase Lantus for better control of BGs May need basal Insulin therapy upon DC Diabetic education Blood sugars remains stable HTN Hx HTN, no current medications BP labile Continue lisinopril Upper limit today otherwise stable 10/27 Normal today 10/28 Acute Kidney Injury: Resolved Monitor renal function Avoid nephrotoxic agents as able Increase Oral Intake of fluids Normalised DVT Px: Heparin SQ Code Status: Full code Disposition: Expect to discharge home when stable Follows with Dr Kirby for routine care DISPOSITION Discharge today OP -dr Kirby Wound care-Monday ID as per wound care Vital Signs: Date Time Temp Pulse Resp B/P (MAP) Pulse Ox O2 Delivery O2 Flow Rate FiO2 10/28/17 08:00 Room Air 10/28/17 07:34 36.8 82 18 137/72 (93) 96 10/27/17 22:47 Room Air 10/27/17 22:40 36.7 82 18 139/83 (101) 97 Room Air 10/27/17 16:00 97 Room Air 10/27/17 15:30 36.9 80 18 130/80 (97) 95 Room Air Lab Results: Results Past 24 Hours Test 10/27/17 16:44 10/27/17 20:25 10/28/17 04:05 10/28/17 05:44 Range/Units Bedside Glucose 142 83 103 70-99 mg/dl White Blood Count 5.24 4.8-10.8 K/uL Red Blood Count 3.52 4.7-6.1 M/uL Hemoglobin 9.6 14.0-18.0 g/dL Hematocrit 29.8 42-52 % Mean Corpuscular Volume 84.7 80-100 fL Mean Corpuscular Hemoglobin 27.3 25-34 pg Mean Corpuscular Hemoglobin Concent 32.2 32-36 g/dl RDW Standard Deviation 41.5 36.4-46.3 fL RDW Coefficient of Variation 13.7 11.5-14.5 % Platelet Count 290 130-400 K/uL Mean Platelet Volume 9.5 7.4-10.4 fL Sodium Level 141 136-145 mmol/L Potassium Level 4.0 3.5-5.1 mmol/L Chloride Level 108 98-107 mmol/L Carbon Dioxide Level 26 21-32 mmol/L Anion Gap 7.0 3-11 mmol/L Blood Urea Nitrogen 14 7-18 mg/dl Creatinine 0.95 0.60-1.40 mg/dl Est Creatinine Clear Calc Drug Dose 117.7 ml/min Estimated GFR () 106.2 Estimated GFR (Non- 91.7 BUN/Creatinine Ratio 14.9 10-20 Random Glucose 109 70-99 mg/dl Calcium Level 8.2 8.5-10.1 mg/dl Phosphorus Level 2.9 2.5-4.9 mg/dl Magnesium Level 1.5 1.8-2.4 mg/dl Test 10/28/17 07:29 10/28/17 11:44 Range/Units Bedside Glucose 113 107 70-99 mg/dl
[2017-10-28] MEDS ORDERED: MTR500 PO (12:50)
[2017-10-28] MEDS ORDERED: LVQ750 PO (12:50)
[2017-10-28] MEDS ORDERED: LSN5 PO (12:50)
[2017-10-28] MEDS ORDERED: LCTX PO (12:50)
--- NOTE | 2017-10-28 12:54 | Discharge Instructions ---
Discharge Instructions Date of Service October 28, 2017. Admission Reason for Admission: L Foot Cellulitis Discharge Discharge Diagnosis / Problem: Diabetic Foot Ulcer Discharge Goals Goal(s): Prevent Disease Progression Activity Recommendations Activity Limitations: resume your previous activity . Instructions / Follow-Up Instructions / Follow-Up DR Kirby on 11/02/17 at 12:45 PM.Please keep Wound care appointment and appointment with Infectious disease specialist. Current Hospital Diet Patient's current hospital diet: Diabetes Type 2 Diet, AHA Diet (Heart Healthy) Discharge Diet Recommended Diet: AHA Diet (Heart Healthy), Diabetes Type 2 Diet Pending Studies Studies pending at discharge: no Medical Emergencies . Who to Call and When: Medical Emergencies: If at any time you feel your situation is an emergency, please call 911 immediately. . Non-Emergent Contact Non-Emergency issues call your: Primary Care Provider . Past History Medical & Surgical History: (1) Bronchitis (2) DM (diabetes mellitus) (3) HTN (hypertension) (4) Cellulitis of left foot . "Provider Documentation" section prepared by Gabby Joyner. .
[2017-10-28 13:07] VITALS: BP 137/72; PULSE 82; TEMP 36.8; O2SAT 96
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
--- NOTE | 2017-10-31 13:04 | Wound Progress Note: Inpatient ---
Wound Progress Note Date of Service October 26, 2017. Subjective Pt evaluation today including: conversation w/ patient, physical exam, chart review Patient seen today for routine follow-up of a abscess to the left foot with a irrigating wound VAC. Patient denies any significant pain in the foot area patient denies any fever chills or night sweats. Patient denies any other systemic complaints at this time. Objective Physical Exam Notes: Patient is currently lying in hospital bed in no acute distress patient is alert and cooperative throughout the examination. Vital signs were reviewed and found to be unremarkable patient is afebrile. The wound sites on the left foot appear to show less central slough with increased granulation tissue noted. No significant tenderness to palpation or fluctuance noted in the periphery. No periwound erythema active drainage or odor noted. Assessment and Plan Assessment: Resolving cellulitis and abscess formation left foot Plan: No debridement is indicated at this time. The site will continue to have a irrigating wound VAC black foam 125 mm of negative pressure with instillation time of 10 minutes normal saline followed by 2 hours of VAC therapy alternating for the next 48 hours. It is anticipated the patient can be discharged home on a routine outpatient wound VAC black foam 125 mm of negative pressure. Patient can be followed up in the wound clinic on Monday for further assessment. Patient will continue his current course of antibiotic therapy as prescribed.
== END 2017-10-28 14:08 | disposition home health service (06) | DRG 623 ==
LOC: C.MS2W 11:19
PROVIDERS: ADMIT Internal Medicine; ATTEND Internal Medicine
PROC: 0JBR0ZZ Excision of Left Foot Subcutaneous Tissue and Fascia, Open Approach (ICD-10-PCS; principal; 2017-10-23)
DX: E11.621 Type 2 diabetes mellitus with foot ulcer (principal); L03.116 Cellulitis of left lower limb; L97.528 Non-pressure chronic ulcer of other part of left foot with other specified severity; E11.65 Type 2 diabetes mellitus with hyperglycemia; N17.9 Acute kidney failure, unspecified; I10 Essential (primary) hypertension; Z83.3 Family history of diabetes mellitus; Z87.891 Personal history of nicotine dependence; B96.5 Pseudomonas (aeruginosa) (mallei) (pseudomallei) as the cause of diseases classified elsewhere; B95.1 Streptococcus, group B, as the cause of diseases classified elsewhere

== ENCOUNTER → 2018-01-26 | Outpatient (CLI) | payer BC ==
[~2018-01-26] MED LIST changes: -AMOX500C3 PO; -ASCO500C43; -CHRO1CAP7; -CIPR1TAB11 PO; -GARL1CAP; -GLIP-197 PO; +GLIP10TA10 PO; +LCTX PO; +LISI-730 PO; -METF-384 PO; +MULTTAB58 PO; -SULF800T23 PO; -VITA400C15 PO; -VITATAB19 PO
== END | disposition home or self-care (01) ==
LOC: C.LAB 12:47
PROVIDERS: ATTEND Internal Medicine Infectious Disease
DX: Z00.00 Encounter for general adult medical examination without abnormal findings (principal)

== ENCOUNTER 2020-06-04 22:01 | Inpatient (IN) ==
[2020-06-04] MEDS ORDERED: PIPERACILL/TAZOBAC CONSULT ACTIVE PRN (22:41)
[2020-06-04] MEDS ORDERED: PIPERACILLIN/TAZOBACTAM 4.5 GM/120 ML BAG IV ONE (22:41)
[2020-06-04 23:36] LABS: Basophils # (auto) 0.01 K/uL (0-0.2); Basophils % (auto) 0.2 %; Eosinophils # (auto) 0.05 K/uL (0-0.5); Eosinophils % (auto) 1.1 %; Hemoglobin 10.7 g/dL (14.0-18.0); Immature Granulocytes # (auto) 0.01 K/uL (0.00-0.02); Immature Granulocytes % (auto) 0.2 %; Lymphocytes # (auto) 1.67 K/uL (1.2-3.4); Mean Corpuscular Hemoglobin 28.5 pg (25-34); Mean Corpuscular Hgb Conc 33.4 g/dL (32-36); Mean Corpuscular Volume 85.1 fL (80-100); Mean Platelet Volume 10.6 fL (7.4-10.4); Monocytes # (auto) 0.27 K/uL (0.11-0.59); Monocytes % (auto) 5.8 %; Neutrophils # (auto) 2.63 K/uL (1.4-6.5); Neutrophils % (auto) 56.7 %; Platelet Count 277 K/uL (130-400); RDW Coefficient of Variation 12.9 % (11.5-14.5); RDW Standard Deviation 39.7 fL (36.4-46.3); Red Blood Count 3.76 M/uL (4.7-6.1); White Blood Count 4.64 K/uL (4.8-10.8)
[2020-06-04] MEDS ORDERED: DAPTOmycin 350 MG in SYRINGE 0 ML IV ONE (23:43)
[2020-06-04 23:53] LABS: Albumin Level 3.4 gm/dl (3.4-5.0); BUN Creatinine Ratio 33.6 (10-20); C Reactive Protein 0.59 mg/dl (0-0.29); Calcium 8.5 mg/dl (8.5-10.1); Creatinine Clr Calc Pharmacy 87.8 ml/min; Est GFR (African American) 83.2; Est GFR (Non-African American) 71.7; Magnesium 2.2 mg/dl (1.8-2.4)
[2020-06-04 23:56] LABS: Bilirubin,Total 0.5 mg/dl (0.2-1); Globulin 3.4 gm/dl (2.5-4.0); Total Protein 6.8 gm/dl (6.4-8.2)
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
[2020-06-05] MEDS ORDERED: ACETAMINOPHEN 325 MG TAB PO PRN (02:28)
[2020-06-05] MEDS ORDERED: ONDANSETRON INJ 2 MG/ML 2 ML VIAL IV PRN ×3 (02:28→17:41)
[2020-06-05] MEDS ORDERED: POLYETHYLENE (MIRALAX) 17 GM PACK PO PRN (02:28)
--- NOTE | 2020-06-05 02:51 | History and Physical Report ---
DATE OF ADMISSION: 06/05/2020 CHIEF COMPLAINT: Left first toe infection. HISTORY OF PRESENT ILLNESS: This is a 54-year-old male with past medical history significant for type 2 diabetes, hypertension, macular hemorrhage of both eyes, who presents with ongoing infection of the left great toe. The patient states it is blackish in color since last 3 weeks. He saw his family doctor on 05/28/2020. At that time, he was found to have a large callus of the left toe and hard plaque tissue and x-rays were done which showed questionable osteomyelitis and there were some issues with followup and finally he was referred to the ER and the patient came to the ER. Denies any fever, chills, no pain, no other complaints. The patient is resting comfortably, hemodynamically stable. Denies any chest pain, no shortness of breath, no cough, no headache. He has macular hemorrhage, but vision is improving. Denies any earache, no runny nose, no sore throat, no cough, no loss of sense of smell or taste. Appetite is good. No dysphagia, no nausea, no abdominal pain. Normal bowel and bladder movements. There is no blood in the stool or black stools. No swelling in the legs. ALLERGIES: No known drug allergies. PAST MEDICAL HISTORY: As mentioned above. PAST SURGICAL HISTORY: Left cataract surgery, injection of the eyes, repair of skull fracture x6, vitrectomy. MEDICATIONS: The patient is on glimepiride 2 mg p.o. daily, lisinopril 2.5 mg p.o. daily. FAMILY HISTORY: Significant for father has diabetes, heart disorder, hypertension; mother has depression; son has asthma; uncle has prostate cancer. SOCIAL HISTORY: Lives with his . Former smoker. Alcohol, 2 drinks per month. No drug use. REVIEW OF SYSTEMS: As per HPI. Rest of the review of systems negative. PHYSICAL EXAMINATION: GENERAL: The patient is of moderate build, not in acute distress. VITAL SIGNS: Temperature 37, pulse 76, respiratory rate 14, blood pressure 148/83, oxygen 95% on room air. HEENT: Pupils are equal, round, and reactive to light. Oral mucosa moist. NECK: No neck masses seen. CARDIOVASCULAR: S1, S2 heard. Regular rate and rhythm, no murmur, no gallop. RESPIRATORY SYSTEM: Normal AP diameter. No accessory muscle use. No wheezing, no crackles. ABDOMEN: Soft, bowel sounds present, nontender. No distention. CENTRAL NERVOUS SYSTEM: Cranial nerves II-XII grossly intact, nonfocal. EXTREMITIES: Left big toe has blackish discoloration of the callus with open ulcer, but is dry and no drainage seen. Nontender. No erythema seen. LABORATORY DATA: WBC 4.6, hemoglobin 10.7, hematocrit 32, platelets 277. ESR 7. Sodium 142, potassium 4, chloride 110, bicarbonate 28, BUN 39, creatinine 1.1, serum glucose 84. Lactate 0.7, calcium 8.5, magnesium 2.2, total bilirubin 0.5, AST 16, ALT 15, alkaline phosphatase 45. C-reactive protein 0.5. Rapid SARS-CoV-2 negative. IMAGING DATA: Foot x-ray pending. EKG: Normal sinus rhythm, rate of 81, no acute ST changes seen. ASSESSMENT AND PLAN: This is a 54-year-old male who presents with left great toe infection. 1. Left great toe diabetic foot infection, possibly osteomyelitis on x-ray. Black discoloration since last 3 weeks, it is dry, possible dry gangrene. ER started on IV Zosyn and daptomycin, which he will continue. We will keep him n.p.o. Consult orthopedics in a.m. for further recommendations. 2. Diabetes. Hold his glipizide. Placed on insulin sliding scale. Follow the blood sugars. 3. History of hypertension. Continue his home lisinopril. Will monitor the blood pressure. 4. Deep venous thrombosis prophylaxis, sequential compression devices. 5. Disposition, closely monitor in the medical floor. Expect to discharge home and follow with family doctor. Level 1 full code. MTDD
[2020-06-05] MEDS ORDERED: CARBOHYDRATES FOR HYPOGLYCEMIA PO PRN (03:15)
[2020-06-05] MEDS ORDERED: DEXTROSE 50% 50 ML SYRINGE IV PRN (03:15)
[2020-06-05] MEDS ORDERED: GLUCOSE 10 TABS/TUBE PO PRN (03:15)
[2020-06-05] MEDS ORDERED: GLUCOSE 40% GEL 15 GM TUBE PO PRN (03:15)
[2020-06-05] MEDS ORDERED: GLUCAGON FOR INJ 1 MG VIAL SQ PRN (03:15)
[2020-06-05] MEDS: PIPERACILLIN/TAZOBACTAM 3.375 GM in DEXTROSE 5% 100 ML IV SCH ×3 (04:58→19:29)
--- NOTE | 2020-06-05 07:10 | XRay Report ---
XR foot LT min 3V routine CLINICAL HISTORY: left 1st toe infection, plantar arch ulcer. osteo? COMPARISON: None. DISCUSSION: No acute fractures are visualized. There is soft tissue edema at the level of the distal phalanx.. There is irregularity overlying nail bed. There is deformity involving the tuft of the dist al phalanx of the great toe. The appearance suggests prior surgery. In the absence of prior surgery, the findings are suspicious for osteomyelitis. There is talar spurring. IMPRESSION: 1. Deformity involving the distal phalanx of the great toe. In the absence of prior surgery, the find ings are suspicious for acute osteomyelitis. Clinical correlation will be necessary. ACT 112: Negative or not required by law. Electronically signed by: Rojelio Michelle M.D. 06/05/2020 7:08 AM
[2020-06-05] MEDS ORDERED: INSULIN ASPART 100 UNITS/ML 3 ML PEN SC SCH (07:30)
[2020-06-05] MEDS: lisinopril 2.5 MG TAB PO SCH (07:44)
[2020-06-05 07:52] LABS: Basophils # (auto) 0.02 K/uL (0-0.2); Basophils % (auto) 0.5 %; Eosinophils % (auto) 2.6 %; Hematocrit (blood only) 32.5 % (42-52); Hemoglobin 10.7 g/dL (14.0-18.0); Immature Granulocytes # (auto) 0.01 K/uL (0.00-0.02); Immature Granulocytes % (auto) 0.3 %; Lymphocytes % (auto) 46.9 %; Mean Corpuscular Hemoglobin 27.9 pg (25-34); Mean Corpuscular Hgb Conc 32.9 g/dL (32-36); Mean Corpuscular Volume 84.9 fL (80-100); Mean Platelet Volume 11.5 fL (7.4-10.4); Monocytes # (auto) 0.24 K/uL (0.11-0.59); Monocytes % (auto) 6.3 %; Neutrophils # (auto) 1.67 K/uL (1.4-6.5); Neutrophils % (auto) 43.4 %; Platelet Count 214 K/uL (130-400); RDW Coefficient of Variation 12.8 % (11.5-14.5); Red Blood Count 3.83 M/uL (4.7-6.1); White Blood Count 3.84 K/uL (4.8-10.8)
[2020-06-05 07:55] LABS: BUN Creatinine Ratio 27.6 (10-20); Calcium 8.8 mg/dl (8.5-10.1); Creatinine Clr Calc Pharmacy 100.9 ml/min; Est GFR (African American) 98.5; Est GFR (Non-African American) 84.9; Magnesium 2.3 mg/dl (1.8-2.4); Potassium 3.6 mmol/L (3.5-5.1)
[2020-06-05 10:22] LABS: Estimated Average Glucose 123 mg/dl; Hemoglobin A1C 5.9 % (4.5-5.6)
[2020-06-05] MEDS: INSULIN ASPART 100 UNITS/ML 3 ML PEN SC SCH ×2 (12:28→18:19)
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
--- NOTE | 2020-06-05 14:35 | Electrocardiogram Report ---
Test Reason : Blood Pressure : / mmHG Vent. Rate : 081 BPM Atrial Rate : 081 BPM P-R Int : 148 ms QRS Dur : 084 ms QT Int : 380 ms P-R-T Axes : 064 023 035 degrees QTc Int : 441 ms Suspect V1-V3 lead reversal Normal sinus rhythm Increased R/S ratio in V1, consider early transition or posterior infarct Abnormal ECG No previous ECGs available Confirmed by Ever Albright ([id number]) on 06/05/2020 2:34:37 PM Referred By: REFERRED SELF Confirmed By:Ever Albright
--- NOTE | 2020-06-05 14:45 | Ultrasound Report ---
RIGHT LOWER EXTREMITY ARTERIAL DOPPLER ULTRASOUND CLINICAL HISTORY: Peripheral vascular disease. COMPARISON STUDY: No previous studies for comparison. TECHNIQUE: A bilateral arterial lower extremity Doppler was ordered. The right lower extremity ultras ound was performed. The left lower extremity ultrasound could not be completed as the patient was alberta led back to the floor. Therefore, the left lower extremity was not assessed. FINDINGS: No elevated velocities were identified within the arterial system of the right lower extrem ity. There is triphasic flow throughout the right lower extremity. The vessels were patent. IMPRESSION: 1. No stenosis within the right lower extremity. Patent vessels within the right lower extremity. 2. Left lower extremity not assessed, as described above. If desired, the patient could return for le lower extremity arterial Doppler ultrasound at a later time. ACT 112: Negative or not required by law. Electronically signed by: Sammy Patel M.D. 06/05/2020 2:44 PM
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
[2020-06-05] MEDS ORDERED: BACITRACIN INJ 50,000 UNIT VIAL ONE ×2 (15:00→15:39)
[2020-06-05] MEDS ORDERED: BUPIVACAINE 0.5 % 5 MG/1 ML MPF 30ML VIAL ONE (15:00)
[2020-06-05] MEDS ORDERED: ONDANSETRON INJ 2 MG/ML 2 ML VIAL ONE (15:16)
[2020-06-05] MEDS ORDERED: MIDAZOLAM HCL 1 MG/ML 2ML VIAL ONE (15:16)
[2020-06-05] MEDS ORDERED: PROPOFOL IV EMULSION 10 MG/ML 20 ML VIAL IV ONE (15:16)
[2020-06-05] MEDS ORDERED: fentaNYL citrate 100 MCG/2 ML VIAL ONE (15:16)
[2020-06-05] MEDS ORDERED: LIDOCAINE HCL 2% 2 ML VIAL/AMP(20MG/ML) INFIL ONE (15:16)
[2020-06-05] MEDS ORDERED: fentaNYL citrate 100 MCG/2 ML VIAL IV PRN (15:19)
[2020-06-05] MEDS ORDERED: ATROPINE SULFATE 0.1 MG/ML 10ML SYR IV PRN (15:19)
[2020-06-05] MEDS ORDERED: LABETALOL HCL IV 5 MG/ML 20ML IV PRN (15:19)
--- NOTE | 2020-06-05 15:28 | History & Physical Bridge Note ---
Date of Service June 05, 2020 History & Physical Bridge Note I have examined the patient, reviewed the History & Physical and in the interval since the performance of the History & Physical I have noted the following changes of clinical significance: Will require left foot partial amputation great toe due to osteomyelitis with irrigation and debridement diabetic/neuropathic ulcer plantar base of the fifth metatarsal.
--- NOTE | 2020-06-05 17:10 | Post Operative Brief Note ---
Immediate Post Op Note v1 Date of Surgery June 05, 2020 Pre & Post Diagnosis Operation Date: 06/05/20 11:45 Pre-Op Diagnosis: LEFT GREAT TOE OSTEOMYELITIS INFECTION, LEFT FOOT DIABETIC/ NEUROPATHIC ULCER BASE 5TH METATARSAL 2.5X2.5X1.0CM. Post-Op Diagnosis: LEFT GREAT TOE OSTEOMYELITIS INFECTION, LEFT FOOT DIABETIC/ NEUROPATHIC ULCER BASE 5TH METATARSAL 2.5X2.5X1.0CM I identified the patient and participated in the time-out.: Yes Procedure Operation Date: 06/05/20 11:45 Actual Procedures p Left Great Toe Partial Amputation to the level of interphalangeal joint, Left Foot irrigation and debridement diabetic neuropathic ulceration base of the fifth metatarsal 2.5 cm x 2.5 cm x 1.0 cm including skin/subcutaneous/fascia (Left) - Vishal Escobedo DO Surgeon Vishal Escobedo DO Recycling Attendant None Estimated Blood Loss 1 Findings Consistent with Post-Op Diagnosis Specimens Aerobic anaerobic Gram stain distal L great toe, amputated distal phalanx Anesthesia Type MAC Regional Complications none Disposition Accompanied Patient To Recovery: No Disposition: Recovery Room
--- NOTE | 2020-06-05 17:23 | Anesthesiology Progress Note ---
Date of Service June 05, 2020 Anesthesia Post Procedure Vital Signs Vital Signs: Temp Pulse Pulse Pulse Resp BP BP 06/05/20 17:20 36.6 C 79 19 154/96 H 06/05/20 17:10 83 15 149/90 H 06/05/20 17:04 36.4 C L 90 18 144/86 H 06/05/20 15:02 36.7 C 73 18 153/90 H 06/05/20 14:35 36.8 C 71 20 150/89 H 06/05/20 07:43 36.7 C 72 16 122/71 06/05/20 02:00 37.1 C 78 16 154/82 H 06/05/20 01:31 76 14 06/05/20 01:30 77 13 148/83 H 06/05/20 01:00 80 13 150/77 H 06/05/20 00:31 77 12 06/05/20 00:30 77 12 144/79 H 06/05/20 00:01 79 17 06/05/20 00:00 79 14 148/81 H 06/04/20 23:52 80 15 06/04/20 23:40 79 14 06/04/20 23:38 82 20 132/81 06/04/20 22:02 37 C 93 H 18 164/84 H Pulse Ox 06/05/20 17:20 99 06/05/20 17:10 99 06/05/20 17:04 99 06/05/20 15:02 97 06/05/20 14:35 98 06/05/20 07:43 97 06/05/20 02:00 96 06/05/20 01:31 95 06/05/20 01:30 96 06/05/20 01:00 95 06/05/20 00:31 95 06/05/20 00:30 95 06/05/20 00:01 94 06/05/20 00:00 91 06/04/20 23:52 93 06/04/20 23:40 100 06/04/20 23:38 92 06/04/20 22:02 99 Transfer of Care Handoff Completed per policy Notes Mental Status: alert / awake / arousable Patient Amnestic to Procedure: Yes Nausea / Vomiting: adequately controlled Pain: adequately controlled Airway Patency, RR, SpO2: stable & adequate BP & HR: stable & adequate Hydration State: stable & adequate Anesthetic Complications: no major complications apparent and Pt Satisfied with anesthetic care
[2020-06-05] MEDS ORDERED: ALUMINUM/MAGNESIUM SUSP 30 ML UDC PO PRN (17:41)
[2020-06-05] MEDS ORDERED: METOCLOPRAMIDE HCL INJ 5 MG/ML 2 ML VIAL IV PRN (17:41)
[2020-06-05] MEDS ORDERED: MAGNESIUM HYDROXIDE SUSP 30 ML UDC PO PRN (17:41)
[2020-06-05] MEDS ORDERED: NALOXONE HCL 0.4 MG/1 ML VIAL/CARP IV PRN (17:41)
[2020-06-05] MEDS ORDERED: SODIUM CHLORIDE 0.9% 1000ML 1,000 ML IV SCH (17:41)
[2020-06-05] MEDS ORDERED: bisacodyL 10 MG SUPP PR PRN (17:41)
[2020-06-05] MEDS ORDERED: HYDROmorphone INJ 0.5 MG/0.5 ML SYR IV PRN (17:41)
[2020-06-05] MEDS ORDERED: diphenhydrAMINE Capsule 25 MG CAP PO PRN (17:41)
[2020-06-05] MEDS ORDERED: TAMSULOSIN HCL 0.4 MG CAP PO PRN (17:41)
--- NOTE | 2020-06-05 18:25 | Operative Report (OR) ---
DATE OF OPERATION: 06/05/2020 PREOPERATIVE DIAGNOSES: 1. Left foot great toe osteomyelitis. 2. Left foot diabetic neuropathic ulcer at the base of the fifth metatarsal measuring 2.5 cm x 2.5 cm x 1.0 cm. POSTOPERATIVE DIAGNOSES: 1. Left foot great toe osteomyelitis. 2. Left foot diabetic neuropathic ulcer at the base of the fifth metatarsal measuring 2.5 cm x 2.5 cm x 1.0 cm. PROCEDURES: 1. Left great toe partial amputation. 2. Irrigation and debridement of left foot diabetic neuropathic ulcer measuring 2.5 cm x 2.5 cm x 1.0 cm involving skin, subcutaneous tissue and fascia. SURGEON: Vishal Escobedo DO. TOASTER ELEMENT REPAIRER: None. ANESTHESIA: MAC regional. SPECIMENS: 1. Aerobic, anaerobic, Gram stain from the distal aspect of left great toe bone. 2. Amputated parts of left great toe distal phalanx. DRAINS: None. COMPLICATIONS: None. BLOOD LOSS: 1 mL. PERTINENT HISTORY: This is a 54-year-old gentleman who works at [employer]. He is on his feet all day and he is a type 2 diabetic. He began having ulcerations and problem with his left foot in 2013. He had a chronic ulcer at the base of fifth metatarsal, which took several months to heal. He had had that relatively well controlled, and approximately 3 months ago, he began having ulcerations and then severe deformity of his nail of his left great toe. The toenail had fallen off several times and he was treated with oral antibiotics, failed. This toe became severely swollen and red, presented to the hospital. Radiographs demonstrated likely osteomyelitis of distal phalanx. The patient was seen and examined and then scheduled for surgery as indicated. All potential risks, benefits, complications, alternatives, rehab potential for incomplete relief of symptoms, need for further surgery, DVT, PE, , persistent pain, swelling, scarring, weakness, neurovascular injury, need for further amputation were discussed with the patient. The patient decided to proceed with the procedure as indicated. DESCRIPTION OF PROCEDURE: The patient was taken to the operative suite, placed supine on the operating table. After review of consent and identification of proper operative site, the patient was sedated. Left lower extremity was then sterilely prepped and draped in usual fashion, elevated and partially exsanguinated with an Esmarch bandage and Esmarch tourniquet applied over sterile surgical towel. Next, a 15 blade scalpel was used to make a transverse incision over the distal phalanx at the tip of the left great toe. This incision was deepened through subcutaneous tissue to the level of the bone. The bone was noted to be exceedingly soft, consistent with osteomyelitis. A rongeur was used to take samples of the deep bone and then aerobic, anaerobic, Gram stain were sent for specimen. Next, approximately 21 mL of Marcaine 0.5% plain was then injected around the left great toe as a digital block and then around the plantar base of the left fifth metatarsal at the site of the ulceration. Next, a transverse incision was made over the dorsum of the interphalangeal joint, left great toe full thickness down to bone. Next, the midlateral line incisions were made medial and lateral, then carried distally to create a long plantar flap. Next, the distal phalanx of the left great toe was then skeletonized and then amputated and passed off as specimen. Next, the large sesamoid bone in the plantar aspect of the distal proximal phalanx great toe was then sharply excised to avoid impingement and further ulceration in the plantar aspect of the toe. Next, the flap was then revised and fashioned with a 15 blade scalpel for a low tension closure. Attention then directed toward the base of fifth metatarsal. A 15 blade scalpel was used to debride the hypertrophic tissue surrounding the ulceration, it measured 2.5 cm x 2.5 cm x 1.0 cm. This was then sharply debrided with a 15 blade scalpel, a curette and a rongeur. This was performed down to bleeding tissue through the skin and subcutaneous tissue and fascia. Once the necrotic features of the ulceration were then sharply excised, pulsatile lavage was then used to cleanse the plantar ulceration at the base of fifth metatarsal as well as the incision of the left great toe. Next, new top gloves and top sheet were applied and then 3-0 nylon closure was performed of the left great toe for low tension closure and a good cosmetic result followed by closure of some of the space of the plantar aspect of the left base of fifth metatarsal ulcer with 3-0 nylon. Once this was completed, a sterile lightly compressive dressing was applied consisting of Adaptic, sterile 4 x 4s, ABD pad, cast padding and 4-inch Donald wrap. The tourniquet was released. The patient was awakened and taken to recovery in stable condition. I attest to the content of the Intraoperative Record and any orders documented therein. Any exception s are noted below.
[2020-06-05] MEDS: oxyCODONE HCL IR 5 MG TAB (IMMEDIATE RELEASE) PO PRN (19:38)
[2020-06-05] MEDS: SENNA 8.6 MG TAB PO SCH (20:43)
[2020-06-05] MEDS: DOCUSATE SODIUM 100 MG CAP PO SCH (20:43)
[2020-06-05] MEDS ORDERED: Nursing to Pharmacy Communication SCH (21:30)
--- NOTE | 2020-06-05 21:41 | Hospitalist Progress Note ---
Date of Service June 05, 2020 Assessment & Plan (1) Diabetic foot ulcer associated with type 2 diabetes mellitus, with fat layer exposed: Diabetic foot / toe ulcer. Plain films suggest osteomyelitis distal left great toe. Continue IV antibiotics. Ortho consulted. (2) Osteomyelitis of great toe of left foot: As noted above. (3) Hypertension: Continue lisinopril. (4) Diabetes mellitus type 2 with complications: Hgb A1c = 5.9. Hold glimepiride. FBS today = 80. Insulin coverage as needed. (5) DVT prophylaxis: Low risk for VTE per IMPROVE risk assessment model. SCD's ordered. (6) Discharge planning issues: Anticipated discharge to home. Family Medicine follow-up with Dr. Kirby. Ortho follow-up with Dr. Escobedo. Admission and Anticipated Discharge Date Admission Date: June 05, 2020 Subjective Recheck for infection left great toe. Patient seen in their room around 1140. No fever. No pain left great toe. No nausea, vomiting, diarrhea. Physical Exam Constitutional: no acute distress Eyes: + anicteric sclerae Respiratory: normal respiratory effort, lungs clear to auscultation Cardiovascular: Rate/Rhythm: regular rate and regular rhythm Vessels: posterior tibial pulses present (left PT 2/2) and dorsalis pedis pulses present (left DP 2/2); no JVD Extremities: no calf tenderness and no edema Gastrointestinal (Abdomen): normal bowel sounds, soft, nontender, no hepatosplenomegaly Musculoskeletal: Extremities: no cyanosis left great toe: ulceration / callus distal toe, Skin: no rashes, warm and dry Psychiatric: Orientation: alert and oriented x 3 Results & Data Results & Data ([facility]) Vital Signs (Past 12 Hours) Vital Signs Temp Pulse Pulse Resp BP BP Pulse Ox 06/05/20 21:04 37.1 C 72 16 139/81 98 06/05/20 20:09 36.7 C 76 16 152/86 H 99 06/05/20 19:04 37 C 85 16 151/94 H 99 06/05/20 18:34 37.1 C 82 16 130/87 98 06/05/20 18:05 150/93 H 06/05/20 17:47 159/101 H 06/05/20 17:40 36.6 C 79 16 167/103 H 99 06/05/20 17:20 36.6 C 79 19 154/96 H 99 06/05/20 17:10 83 15 149/90 H 99 06/05/20 17:04 36.4 C L 90 18 144/86 H 99 06/05/20 15:02 36.7 C 73 18 153/90 H 97 06/05/20 14:35 36.8 C 71 20 150/89 H 98 Laboratory Results Laboratory Results - last 24 hr 06/05/20 06/05/20 06/05/20 00:15 06:48 06:48 WBC Cancelled RBC Cancelled Hgb Cancelled Hct Cancelled MCV Cancelled MCH Cancelled MCHC Cancelled RDW Std Deviation Cancelled RDW Coeff of Asha Cancelled Plt Count Cancelled MPV Cancelled Immature Gran % (Auto) Cancelled Neut % (Auto) Cancelled Lymph % (Auto) Cancelled [place] % (Auto) Cancelled Eos % (Auto) Cancelled Baso % (Auto) Cancelled Neut # (Auto) Cancelled Lymph # (Auto) Cancelled [place] # (Auto) Cancelled Eos # (Auto) Cancelled Baso # (Auto) Cancelled Immature Gran # (Auto) Cancelled Absolute Nucleated RBC Cancelled Nucleated RBC % (auto) Cancelled Neutrophils % (Manual) Cancelled Band Neutrophils % Cancelled Lymphocytes % (Manual) Cancelled Prolymphocyte % Cancelled Reactive Lymphs % (Man) Cancelled Monocytes % (Manual) Cancelled Eosinophils % (Manual) Cancelled Basophils % (Manual) Cancelled Metamyelocytes % (Man) Cancelled Myelocytes % (Man) Cancelled Promyelocytes % (Man) Cancelled Blast Cells % (Manual) Cancelled Plasma Cell % (Manual) Cancelled Other Cells % Cancelled Nucleated RBC % Cancelled Neutrophils # (Manual) Cancelled Band Neutrophils # Cancelled Total Absolute Neuts Cancelled Lymphocytes # (Manual) Cancelled Prolymphocyte # Cancelled Reactive Lymphs # Cancelled Total Abs Lymphocytes Cancelled Monocytes # (Manual) Cancelled Eosinophils # (Manual) Cancelled Basophils # (Manual) Cancelled Metamyelocytes # (Man) Cancelled Myelocytes # (Manual) Cancelled Promyelocytes # (Man) Cancelled Blast Cells # (Man) Cancelled Plasma Cell # (Manual) Cancelled Other Cells # Cancelled Nucleated RBCs # (Man) Cancelled Hypersegmented Neuts Cancelled Hyposegmented Neuts Cancelled Hypogranular Neuts Cancelled Large Granular Lymphs Cancelled # Lrg Granular Lymphs Cancelled Hairy Cells Cancelled Smudge Cells Cancelled Toxic Granulation Cancelled Toxic Vacuolation Cancelled Dohle Bodies Cancelled Irving Rods Cancelled Platelet Estimate Cancelled Hypogranular Platelets Cancelled Clumped Platelets Cancelled Giant Platelets Cancelled Platelet Satelliting Cancelled RBC Morphology Cancelled Polychromasia Cancelled Hypochromasia Cancelled Poikilocytosis Cancelled Basophilic Stippling Cancelled Anisocytosis Cancelled Microcytosis Cancelled Macrocytosis Cancelled Spherocytes Cancelled Pappenheimer Bodies Cancelled Sickle Cells Cancelled Target Cells Cancelled Tear Drop Cells Cancelled Ovalocytes Cancelled Stomatocytes Cancelled Williamson-Marana Bodies Cancelled Echinocytes Cancelled Acanthocytes (Spur) Cancelled Rouleaux Cancelled RBC Agglutinates Cancelled Schistocytes Cancelled RBC Morph Comment Cancelled Sezary Cell Cancelled Sodium 139 Potassium 3.6 Chloride 110 H Carbon Dioxide 25 Anion Gap 4.0 BUN 28 H Creatinine 1.00 Est Cr Clr Drug Dosing 100.9 Est GFR ( Amer) 98.5 Est GFR (Non-Af Amer) 84.9 BUN/Creatinine Ratio 27.6 H Glucose 68 L POC Glucose Estimat Average Glucose Hemoglobin A1c Calcium 8.8 Magnesium 2.3 COVID-19 Eval Order SARS-CoV-2, RNA, NAAT SARS-CoV-2 Ag (Rapid) Negative 06/05/20 06/05/20 06/05/20 06:48 06:48 07:51 WBC 3.84 L RBC 3.83 L Hgb 10.7 L Hct 32.5 L MCV 84.9 MCH 27.9 MCHC 32.9 RDW Std Deviation 39.0 RDW Coeff of Asha 12.8 Plt Count 214 MPV 11.5 H Immature Gran % (Auto) 0.3 Neut % (Auto) 43.4 Lymph % (Auto) 46.9 [place] % (Auto) 6.3 Eos % (Auto) 2.6 Baso % (Auto) 0.5 Neut # (Auto) 1.67 Lymph # (Auto) 1.80 [place] # (Auto) 0.24 Eos # (Auto) 0.10 Baso # (Auto) 0.02 Immature Gran # (Auto) 0.01 Absolute Nucleated RBC Nucleated RBC % (auto) Neutrophils % (Manual) Band Neutrophils % Lymphocytes % (Manual) Prolymphocyte % Reactive Lymphs % (Man) Monocytes % (Manual) Eosinophils % (Manual) Basophils % (Manual) Metamyelocytes % (Man) Myelocytes % (Man) Promyelocytes % (Man) Blast Cells % (Manual) Plasma Cell % (Manual) Other Cells % Nucleated RBC % Neutrophils # (Manual) Band Neutrophils # Total Absolute Neuts Lymphocytes # (Manual) Prolymphocyte # Reactive Lymphs # Total Abs Lymphocytes Monocytes # (Manual) Eosinophils # (Manual) Basophils # (Manual) Metamyelocytes # (Man) Myelocytes # (Manual) Promyelocytes # (Man) Blast Cells # (Man) Plasma Cell # (Manual) Other Cells # Nucleated RBCs # (Man) Hypersegmented Neuts Hyposegmented Neuts Hypogranular Neuts Large Granular Lymphs # Lrg Granular Lymphs Hairy Cells Smudge Cells Toxic Granulation Toxic Vacuolation Dohle Bodies Irving Rods Platelet Estimate Hypogranular Platelets Clumped Platelets Giant Platelets Platelet Satelliting RBC Morphology Polychromasia Hypochromasia Poikilocytosis Basophilic Stippling Anisocytosis Microcytosis Macrocytosis Spherocytes Pappenheimer Bodies Sickle Cells Target Cells Tear Drop Cells Ovalocytes Stomatocytes Williamson-Marana Bodies Echinocytes Acanthocytes (Spur) Rouleaux RBC Agglutinates Schistocytes RBC Morph Comment Sezary Cell Sodium Potassium Chloride Carbon Dioxide Anion Gap BUN Creatinine Est Cr Clr Drug Dosing Est GFR ( Amer) Est GFR (Non-Af Amer) BUN/Creatinine Ratio Glucose POC Glucose 80 Estimat Average Glucose 123 Hemoglobin A1c 5.9 H Calcium Magnesium COVID-19 Eval Order SARS-CoV-2, RNA, NAAT SARS-CoV-2 Ag (Rapid) 06/05/20 06/05/20 06/05/20 12:10 14:30 14:30 WBC RBC Hgb Hct MCV MCH MCHC RDW Std Deviation RDW Coeff of Asha Plt Count MPV Immature Gran % (Auto) Neut % (Auto) Lymph % (Auto) [place] % (Auto) Eos % (Auto) Baso % (Auto) Neut # (Auto) Lymph # (Auto) [place] # (Auto) Eos # (Auto) Baso # (Auto) Immature Gran # (Auto) Absolute Nucleated RBC Nucleated RBC % (auto) Neutrophils % (Manual) Band Neutrophils % Lymphocytes % (Manual) Prolymphocyte % Reactive Lymphs % (Man) Monocytes % (Manual) Eosinophils % (Manual) Basophils % (Manual) Metamyelocytes % (Man) Myelocytes % (Man) Promyelocytes % (Man) Blast Cells % (Manual) Plasma Cell % (Manual) Other Cells % Nucleated RBC % Neutrophils # (Manual) Band Neutrophils # Total Absolute Neuts Lymphocytes # (Manual) Prolymphocyte # Reactive Lymphs # Total Abs Lymphocytes Monocytes # (Manual) Eosinophils # (Manual) Basophils # (Manual) Metamyelocytes # (Man) Myelocytes # (Manual) Promyelocytes # (Man) Blast Cells # (Man) Plasma Cell # (Manual) Other Cells # Nucleated RBCs # (Man) Hypersegmented Neuts Hyposegmented Neuts Hypogranular Neuts Large Granular Lymphs # Lrg Granular Lymphs Hairy Cells Smudge Cells Toxic Granulation Toxic Vacuolation Dohle Bodies Irving Rods Platelet Estimate Hypogranular Platelets Clumped Platelets Giant Platelets Platelet Satelliting RBC Morphology Polychromasia Hypochromasia Poikilocytosis Basophilic Stippling Anisocytosis Microcytosis Macrocytosis Spherocytes Pappenheimer Bodies Sickle Cells Target Cells Tear Drop Cells Ovalocytes Stomatocytes Williamson-Marana Bodies Echinocytes Acanthocytes (Spur) Rouleaux RBC Agglutinates Schistocytes RBC Morph Comment Sezary Cell Sodium Potassium Chloride Carbon Dioxide Anion Gap BUN Creatinine Est Cr Clr Drug Dosing Est GFR ( Amer) Est GFR (Non-Af Amer) BUN/Creatinine Ratio Glucose POC Glucose 88 Estimat Average Glucose Hemoglobin A1c Calcium Magnesium COVID-19 Eval Order Covid19 IDNow atMLAC SARS-CoV-2, RNA, NAAT NEGATIVE SARS-CoV-2 Ag (Rapid) 06/05/20 06/05/20 17:05 20:31 WBC RBC Hgb Hct MCV MCH MCHC RDW Std Deviation RDW Coeff of Ahsa Plt Count MPV Immature Gran % (Auto) Neut % (Auto) Lymph % (Auto) [place] % (Auto) Eos % (Auto) Baso % (Auto) Neut # (Auto) Lymph # (Auto) [place] # (Auto) Eos # (Auto) Baso # (Auto) Immature Gran # (Auto) Absolute Nucleated RBC Nucleated RBC % (auto) Neutrophils % (Manual) Band Neutrophils % Lymphocytes % (Manual) Prolymphocyte % Reactive Lymphs % (Man) Monocytes % (Manual) Eosinophils % (Manual) Basophils % (Manual) Metamyelocytes % (Man) Myelocytes % (Man) Promyelocytes % (Man) Blast Cells % (Manual) Plasma Cell % (Manual) Other Cells % Nucleated RBC % Neutrophils # (Manual) Band Neutrophils # Total Absolute Neuts Lymphocytes # (Manual) Prolymphocyte # Reactive Lymphs # Total Abs Lymphocytes Monocytes # (Manual) Eosinophils # (Manual) Basophils # (Manual) Metamyelocytes # (Man) Myelocytes # (Manual) Promyelocytes # (Man) Blast Cells # (Man) Plasma Cell # (Manual) Other Cells # Nucleated RBCs # (Man) Hypersegmented Neuts Hyposegmented Neuts Hypogranular Neuts Large Granular Lymphs # Lrg Granular Lymphs Hairy Cells Smudge Cells Toxic Granulation Toxic Vacuolation Dohle Bodies Irving Rods Platelet Estimate Hypogranular Platelets Clumped Platelets Giant Platelets Platelet Satelliting RBC Morphology Polychromasia Hypochromasia Poikilocytosis Basophilic Stippling Anisocytosis Microcytosis Macrocytosis Spherocytes Pappenheimer Bodies Sickle Cells Target Cells Tear Drop Cells Ovalocytes Stomatocytes Williamson-Marana Bodies Echinocytes Acanthocytes (Spur) Rouleaux RBC Agglutinates Schistocytes RBC Morph Comment Sezary Cell Sodium Potassium Chloride Carbon Dioxide Anion Gap BUN Creatinine Est Cr Clr Drug Dosing Est GFR ( Amer) Est GFR (Non-Af Amer) BUN/Creatinine Ratio Glucose POC Glucose 87 143 H Estimat Average Glucose Hemoglobin A1c Calcium Magnesium COVID-19 Eval Order SARS-CoV-2, RNA, NAAT SARS-CoV-2 Ag (Rapid)
[2020-06-05] MEDS: DAPTOmycin 500 MG in SYRINGE 0 ML IV SCH (22:54)
[2020-06-06] MEDS: PIPERACILLIN/TAZOBACTAM 3.375 GM in DEXTROSE 5% 100 ML IV SCH ×3 (03:27→19:47)
--- NOTE | 2020-06-06 06:46 | Orthopedic Progress Note ---
Date of Service June 06, 2020 Assessment & Plan (1) Diabetic foot ulcer associated with type 2 diabetes mellitus, with fat layer exposed: POD #1 s/p Left great toe partial amputation, I&D of left foot diabetic neuropathic ulcer Continue IV Abx, currently on IV Zosyn and daptomycin dressing change in am NWB left foot (2) Cellulitis of left foot: Admission and Anticipated Discharge Date Admission Date: June 05, 2020 Subjective POD #1 s/p Left great toe partial amputation, I&D of left foot diabetic neuropathic ulcer Review of Systems Constitutional: as per Subjective / HPI; no fever and no chills Respiratory: no cough and no dyspnea Cardiovascular: no chest pain and no dyspnea Gastrointestinal: no nausea and no vomiting Physical Exam Physical Exam: Vital Signs Temp 36.6 C 06/06/20 03:50 Pulse 71 06/06/20 03:50 Resp 14 06/06/20 03:50 BP 144/82 H 06/06/20 03:50 Pulse Ox 97 06/06/20 03:50 Intake & Output 06/05/20 06/05/20 06/06/20 06:59 18:59 06:59 Intake Total 120 / 120 630 / 1920 1290 / 1920 Output Total 826 / 2201 1375 / 2201 Balance 120 / 120 -196 / -281 -85 / -281 Weight 96.5 kg 96.5 kg Intake: IV 120 / 120 230 / 1280 1050 / 1280 Zosyn 3.375 gm In D5 100 ml @ 230 / 345 115 / 345 28.75 mls/hr I V Q8H [facility] Rx#: [id number] ZOSYN 4.5 gm I n 120 ml @ 240 120 / 120 mls/hr IV NOW ONE Rx#:[id number] Nss 1000ML 1,0 00 ml @ 100 mls/ 935 / 935 hr IV .Q10H SC H Rx#:[id number] IV Perioperative 400 / 400 Oral 240 / 240 Output: Urine 825 / 2200 1375 / 2200 Estimated Blood Loss Other: Other Intake Cris rce NPO Weight Measureme nt Method Standing Scale Constitutional: WD/WN, vitals as above no acute distress Musculoskeletal: Left lower extremity: dressing is clean and dry, calf soft, non-tender. Results & Data ([facility]) Vital Signs (Past 12 Hours) Vital Signs Temp Pulse Resp BP BP Pulse Ox 06/06/20 03:50 36.6 C 71 14 144/82 H 97 06/05/20 23:07 37.3 C 78 14 160/94 H 99 06/05/20 21:04 37.1 C 72 16 139/81 98 06/05/20 20:09 36.7 C 76 16 152/86 H 99 06/05/20 19:04 37 C 85 16 151/94 H 99
[2020-06-06] MEDS: MULTIVITAMIN TAB PO SCH (08:28)
[2020-06-06] MEDS: lisinopril 2.5 MG TAB PO SCH (08:28)
[2020-06-06] MEDS: DOCUSATE SODIUM 100 MG CAP PO SCH ×2 (08:28→17:39)
[2020-06-06] MEDS: INSULIN ASPART 100 UNITS/ML 3 ML PEN SC SCH ×4 (08:30→20:54)
[2020-06-06] MEDS: oxyCODONE HCL IR 5 MG TAB (IMMEDIATE RELEASE) PO PRN ×2 (14:20→19:45)
[2020-06-06] MEDS: SENNA 8.6 MG TAB PO SCH (17:39)
[2020-06-06] MEDS: DAPTOmycin 500 MG in SYRINGE 0 ML IV SCH (22:28)
--- NOTE | 2020-06-06 23:55 | Hospitalist Progress Note ---
Date of Service June 06, 2020 Assessment & Plan (1) Diabetic foot ulcer associated with type 2 diabetes mellitus, with fat layer exposed: Diabetic foot / toe ulcer. Plain films suggest osteomyelitis distal left great toe. Ortho consulted. Amputation distal left great toe performed by Dr. Escobedo 06/05. POD # 1. Plantar ulcer base of left metatarsal debrided. Continue IV antibiotics. Will need to avoid significant weight bearing on left foot until ulcer heals. Eventual referral to diabetic foot clinic discussed. (2) Osteomyelitis of great toe of left foot: As noted above. (3) Hypertension: Continue lisinopril. (4) Diabetes mellitus type 2 with complications: Hgb A1c = 5.9. Hold glimepiride. FBS today = 132. Insulin coverage as needed. (5) DVT prophylaxis: Low risk for VTE per IMPROVE risk assessment model. SCD's ordered. Add SQ enoxaparin tomorrow because of immobility. (6) Discharge planning issues: Anticipated discharge to home. Family Medicine follow-up with Dr. Kirby. Ortho follow-up with Dr. Escobedo. Outpatient referral to diabetic foot clinic +/- wound clinic. Admission and Anticipated Discharge Date Admission Date: June 05, 2020 Subjective Recheck for infection left great toe. Patient seen in their room around 1500. Underwent amputation distal left great toe yesterday. No fever. No pain left great toe. No nausea, vomiting, diarrhea. No cough or SOB. Physical Exam Constitutional: no acute distress Eyes: + anicteric sclerae Respiratory: normal respiratory effort, lungs clear to auscultation Cardiovascular: Rate/Rhythm: regular rate and regular rhythm Vessels: no JVD Extremities: no calf tenderness and no edema Gastrointestinal (Abdomen): normal bowel sounds, soft, nontender, no hepatosplenomegaly Musculoskeletal: Extremities: + foot abnormality (left foot bandaged); no cyanosis Skin: no rashes, warm and dry Psychiatric: Orientation: alert and oriented x 3 Results & Data Results & Data ([facility]) Vital Signs (Past 12 Hours) Vital Signs Temp Pulse Resp BP Pulse Ox 06/06/20 22:13 37.5 C 77 16 150/82 H 97 06/06/20 15:23 36.9 C 72 16 132/78 98 Laboratory Results Laboratory Results - last 24 hr 06/06/20 06/06/20 06/06/20 08:02 11:55 17:06 POC Glucose 132 H 108 H 149 H 06/06/20 20:46 POC Glucose 101 H Microbiology 06/05/20 Unknown Toe,Left Great Gram Stain - Final 06/05/20 Unknown Toe,Left Great Aerobic and Anaerobic Culture - Preliminary Pin-point growth present, reincubating. 06/04/20 23:27 Blood Aerobic Blood Culture - Preliminary No growth in Aerobic bottle after 24 hours. 06/04/20 23:27 Blood Anaerobic Blood Culture - Preliminary No growth in Anaerobic bottle after 24 hours. 06/04/20 23:17 Blood Aerobic Blood Culture - Preliminary No growth in Aerobic bottle after 24 hours. 06/04/20 23:17 Blood Anaerobic Blood Culture - Preliminary No growth in Anaerobic bottle after 24 hours.
[2020-06-07] MEDS: PIPERACILLIN/TAZOBACTAM 3.375 GM in DEXTROSE 5% 100 ML IV SCH ×3 (04:50→21:36)
--- NOTE | 2020-06-07 07:01 | Orthopedic Progress Note ---
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 Review of Systems Constitutional: as per Subjective / HPI; no fever and no chills Cardiovascular: no chest pain, no dyspnea and no orthopnea Gastrointestinal: no nausea and no vomiting Physical Exam Physical Exam: Vital Signs Temp 37.2 C 06/06/20 23:56 Pulse 77 06/06/20 22:13 Resp 16 06/06/20 22:13 BP 150/82 H 06/06/20 22:13 Pulse Ox 97 06/06/20 22:13 Intake & Output 06/06/20 06/06/20 06/07/20 06:59 18:59 06:59 Intake Total 1290 / 1920 230 / 695 465 / 695 Output Total 1375 / 2201 750 / 750 Balance -85 / -281 230 / -55 -285 / -55 Intake: IV 1050 / 1280 230 / 345 115 / 345 Zosyn 3.375 gm In D5 100 ml @ 115 / 345 230 / 345 115 / 345 28.75 mls/hr I V Q8H [facility] Rx#: [id number] Nss 1000ML 1,0 00 ml @ 100 mls/ 935 / 935 hr IV .Q10H [facility] Rx#:[id number] Oral 240 / 240 350 / 350 Output: Urine 1375 / 2200 750 / 750 Constitutional: WD/WN, vitals as above no acute distress Musculoskeletal: Left foot: dressing removed this am, he is s/p partial amputation left great toe. skin edges well approximated, there is no drainage noted. there is no tenderness at the 1st MTP joint. there is also wound noted plantar surface lateral aspect of the foot, nylon sutures in place, no erythema or drainage noted. Results & Data ([facility]) Vital Signs (Past 12 Hours) Vital Signs Temp Pulse Resp BP Pulse Ox 06/06/20 23:56 37.2 C 06/06/20 22:13 37.5 C 77 16 150/82 H 97 Laboratory Results Laboratory Results WBC 3.84 K/uL (4.8-10.8) L 06/05/20 06:48 WBC Cancelled 06/05/20 06:48 RBC 3.83 M/uL (4.7-6.1) L 06/05/20 06:48 RBC Cancelled 06/05/20 06:48 Hgb 10.7 g/dL (14.0-18.0) L 06/05/20 06:48 Hgb Cancelled 06/05/20 06:48 Hct 32.5 % (42-52) L 06/05/20 06:48 Hct Cancelled 06/05/20 06:48 MCV 84.9 fL (80-100) 06/05/20 06:48 MCV Cancelled 06/05/20 06:48 MCH 27.9 pg (25-34) 06/05/20 06:48 MCH Cancelled 06/05/20 06:48 MCHC 32.9 g/dL (32-36) 06/05/20 06:48 MCHC Cancelled 06/05/20 06:48 RDW Std Deviation 39.0 fL (36.4-46.3) 06/05/20 06:48 RDW Std Deviation Cancelled 06/05/20 06:48 RDW Coeff of Asha 12.8 % (11.5-14.5) 06/05/20 06:48 RDW Coeff of Asha Cancelled 06/05/20 06:48 Plt Count 214 K/uL (130-400) 06/05/20 06:48 Plt Count Cancelled 06/05/20 06:48 MPV 11.5 fL (7.4-10.4) H 06/05/20 06:48 MPV Cancelled 06/05/20 06:48 Immature Gran % (Auto) 0.3 % 06/05/20 06:48 Immature Gran % (Auto) Cancelled 06/05/20 06:48 Neut % (Auto) 43.4 % 06/05/20 06:48 Neut % (Auto) Cancelled 06/05/20 06:48 Lymph % (Auto) 46.9 % 06/05/20 06:48 Lymph % (Auto) Cancelled 06/05/20 06:48 [place] % (Auto) 6.3 % 06/05/20 06:48 [place] % (Auto) Cancelled 06/05/20 06:48 Eos % (Auto) 2.6 % 06/05/20 06:48 Eos % (Auto) Cancelled 06/05/20 06:48 Baso % (Auto) 0.5 % 06/05/20 06:48 Baso % (Auto) Cancelled 06/05/20 06:48 Neut # (Auto) 1.67 K/uL (1.4-6.5) 06/05/20 06:48 Neut # (Auto) Cancelled 06/05/20 06:48 Lymph # (Auto) 1.80 K/uL (1.2-3.4) 06/05/20 06:48 Lymph # (Auto) Cancelled 06/05/20 06:48 [place] # (Auto) 0.24 K/uL (0.11-0.59) 06/05/20 06:48 [place] # (Auto) Cancelled 06/05/20 06:48 Eos # (Auto) 0.10 K/uL (0-0.5) 06/05/20 06:48 Eos # (Auto) Cancelled 06/05/20 06:48 Baso # (Auto) 0.02 K/uL (0-0.2) 06/05/20 06:48 Baso # (Auto) Cancelled 06/05/20 06:48 Immature Gran # (Auto) 0.01 K/uL (0.00-0.02) 06/05/20 06:48 Immature Gran # (Auto) Cancelled 06/05/20 06:48 Absolute Nucleated RBC Cancelled 06/05/20 06:48 Nucleated RBC % (auto) Cancelled 06/05/20 06:48 Neutrophils % (Manual) Cancelled 06/05/20 06:48 Band Neutrophils % Cancelled 06/05/20 06:48 Lymphocytes % (Manual) Cancelled 06/05/20 06:48 Prolymphocyte % Cancelled 06/05/20 06:48 Reactive Lymphs % (Man) Cancelled 06/05/20 06:48 Monocytes % (Manual) Cancelled 06/05/20 06:48 Eosinophils % (Manual) Cancelled 06/05/20 06:48 Basophils % (Manual) Cancelled 06/05/20 06:48 Metamyelocytes % (Man) Cancelled 06/05/20 06:48 Myelocytes % (Man) Cancelled 06/05/20 06:48 Promyelocytes % (Man) Cancelled 06/05/20 06:48 Blast Cells % (Manual) Cancelled 06/05/20 06:48 Plasma Cell % (Manual) Cancelled 06/05/20 06:48 Other Cells % Cancelled 06/05/20 06:48 Nucleated RBC % Cancelled 06/05/20 06:48 Neutrophils # (Manual) Cancelled 06/05/20 06:48 Band Neutrophils # Cancelled 06/05/20 06:48 Total Absolute Neuts Cancelled 06/05/20 06:48 Lymphocytes # (Manual) Cancelled 06/05/20 06:48 Prolymphocyte # Cancelled 06/05/20 06:48 Reactive Lymphs # Cancelled 06/05/20 06:48 Total Abs Lymphocytes Cancelled 06/05/20 06:48 Monocytes # (Manual) Cancelled 06/05/20 06:48 Eosinophils # (Manual) Cancelled 06/05/20 06:48 Basophils # (Manual) Cancelled 06/05/20 06:48 Metamyelocytes # (Man) Cancelled 06/05/20 06:48 Myelocytes # (Manual) Cancelled 06/05/20 06:48 Promyelocytes # (Man) Cancelled 06/05/20 06:48 Blast Cells # (Man) Cancelled 06/05/20 06:48 Plasma Cell # (Manual) Cancelled 06/05/20 06:48 Other Cells # Cancelled 06/05/20 06:48 Nucleated RBCs # (Man) Cancelled 06/05/20 06:48 Hypersegmented Neuts Cancelled 06/05/20 06:48 Hyposegmented Neuts Cancelled 06/05/20 06:48 Hypogranular Neuts Cancelled 06/05/20 06:48 Large Granular Lymphs Cancelled 06/05/20 06:48 # Lrg Granular Lymphs Cancelled 06/05/20 06:48 Hairy Cells Cancelled 06/05/20 06:48 Smudge Cells Cancelled 06/05/20 06:48 Toxic Granulation Cancelled 06/05/20 06:48 Toxic Vacuolation Cancelled 06/05/20 06:48 Dohle Bodies Cancelled 06/05/20 06:48 [place] Rods Cancelled 06/05/20 06:48 Platelet Estimate Cancelled 06/05/20 06:48 Hypogranular Platelets Cancelled 06/05/20 06:48 Clumped Platelets Cancelled 06/05/20 06:48 Giant Platelets Cancelled 06/05/20 06:48 Platelet Satelliting Cancelled 06/05/20 06:48 RBC Morphology Cancelled 06/05/20 06:48 Polychromasia Cancelled 06/05/20 06:48 Hypochromasia Cancelled 06/05/20 06:48 Poikilocytosis Cancelled 06/05/20 06:48 Basophilic Stippling Cancelled 06/05/20 06:48 Anisocytosis Cancelled 06/05/20 06:48 Microcytosis Cancelled 06/05/20 06:48 Macrocytosis Cancelled 06/05/20 06:48 Spherocytes Cancelled 06/05/20 06:48 Pappenheimer Bodies Cancelled 06/05/20 06:48 Sickle Cells Cancelled 06/05/20 06:48 Target Cells Cancelled 06/05/20 06:48 Tear Drop Cells Cancelled 06/05/20 06:48 Ovalocytes Cancelled 06/05/20 06:48 Stomatocytes Cancelled 06/05/20 06:48 [place] Bodies Cancelled 06/05/20 06:48 Echinocytes Cancelled 06/05/20 06:48 Acanthocytes (Spur) Cancelled 06/05/20 06:48 Rouleaux Cancelled 06/05/20 06:48 RBC Agglutinates Cancelled 06/05/20 06:48 Schistocytes Cancelled 06/05/20 06:48 RBC Morph Comment Cancelled 06/05/20 06:48 ESR 7 mm/hr (0-14) 06/04/20 23:17 Sezary Cell Cancelled 06/05/20 06:48 Sodium 139 mmol/L (136-145) 06/05/20 06:48 Potassium 3.6 mmol/L (3.5-5.1) 06/05/20 06:48 Chloride 110 mmol/L (98-107) H 06/05/20 06:48 Carbon Dioxide 25 mmol/L (21-32) 06/05/20 06:48 Anion Gap 4.0 (3-11) 06/05/20 06:48 BUN 28 mg/dl (7-18) H 06/05/20 06:48 Creatinine 1.00 mg/dl (0.6-1.4) 06/05/20 06:48 Est Cr Clr Drug Dosing 100.9 ml/min 06/05/20 06:48 Est GFR ( Amer) 98.5 06/05/20 06:48 Est GFR (Non-Af Amer) 84.9 06/05/20 06:48 BUN/Creatinine Ratio 27.6 (10-20) H 06/05/20 06:48 Glucose 68 mg/dl (70-99) L 06/05/20 06:48 POC Glucose 101 mg/dl (70-99) H 06/06/20 20:46 Estimat Average Glucose 123 mg/dl 06/05/20 06:48 Hemoglobin A1c 5.9 % (4.5-5.6) H 06/05/20 06:48 Lactate 0.7 mmol/L (0.4-2.0) 06/04/20 23:27 Calcium 8.8 mg/dl (8.5-10.1) 06/05/20 06:48 Magnesium 2.3 mg/dl (1.8-2.4) 06/05/20 06:48 Total Bilirubin 0.5 mg/dl (0.2-1) 06/04/20 23:17 AST 16 U/L (15-37) 06/04/20 23:17 ALT 15 U/L (12-78) 06/04/20 23:17 Alkaline Phosphatase 45 U/L (45-117) 06/04/20 23:17 C-Reactive Protein 0.59 mg/dl (0-0.29) H 06/04/20 23:17 Total Protein 6.8 gm/dl (6.4-8.2) 06/04/20 23:17 Albumin 3.4 gm/dl (3.4-5.0) 06/04/20 23:17 Globulin 3.4 gm/dl (2.5-4.0) 06/04/20 23:17 Albumin/Globulin Ratio 1.0 (0.9-2) 06/04/20 23:17 COVID-19 Eval Order [facility] 06/05/20 14:30 SARS-CoV-2, RNA, NAAT NEGATIVE (NEGATIVE) 06/05/20 14:30 SARS-CoV-2 Ag (Rapid) Negative (Negative) 06/05/20 00:15 Microbiology 06/04/20 23:27 Blood Aerobic Blood Culture - Preliminary No growth in Aerobic bottle after 48 hours. 06/04/20 23:27 Blood Anaerobic Blood Culture - Preliminary No growth in Anaerobic bottle after 48 hours. 06/04/20 23:17 Blood Aerobic Blood Culture - Preliminary No growth in Aerobic bottle after 48 hours. 06/04/20 23:17 Blood Anaerobic Blood Culture - Preliminary No growth in Anaerobic bottle after 48 hours. 06/05/20 Unknown Toe,Left Great Gram Stain - Final 06/05/20 Unknown Toe,Left Great Aerobic and Anaerobic Culture - Preliminary Pin-point growth present, reincubating.
[2020-06-07 07:25] LABS: INR 1.1 (0.9-1.1); Prothrombin Time 11.6 Seconds (9.0-12.0)
[2020-06-07] MEDS: DOCUSATE SODIUM 100 MG CAP PO SCH ×2 (09:02→21:38)
[2020-06-07] MEDS: MULTIVITAMIN TAB PO SCH (09:02)
[2020-06-07] MEDS: lisinopril 2.5 MG TAB PO SCH (09:02)
[2020-06-07] MEDS: INSULIN ASPART 100 UNITS/ML 3 ML PEN SC SCH ×4 (09:03→21:53)
[2020-06-07] MEDS: ENOXAPARIN INJ 40 MG/0.4 ML SYR SQ SCH (09:08)
--- NOTE | 2020-06-07 12:23 | Hospitalist Progress Note ---
Date of Service June 07, 2020 Assessment & Plan (1) Diabetic foot ulcer associated with type 2 diabetes mellitus, with fat layer exposed: Diabetic foot / toe ulcers. Plain films suggest osteomyelitis distal left great toe. Ortho consulted. Amputation distal left great toe performed by Dr. Escobedo 06/05. POD # 2. Plantar ulcer base of left metatarsal debrided. Blood cultures negative. Wound culture from OR growing rare gram positive cocci and rare gram negative bacilli. Continue IV antibiotic therapy with daptomycin and piperacillin / tazobactam. Will need to avoid significant weight bearing on left foot until ulcer heals. Eventual referral to diabetic foot clinic discussed. (2) Osteomyelitis of great toe of left foot: As noted above. (3) Hypertension: Continue lisinopril. (4) Diabetes mellitus type 2 with complications: Hgb A1c = 5.9. Hold glimepiride. FBS today = 131. Insulin coverage as needed. (5) DVT prophylaxis: Low risk for VTE per IMPROVE risk assessment model. SCD's ordered. Added SQ enoxaparin tomorrow because of immobility. (6) Discharge planning issues: Anticipated discharge to home. Family Medicine follow-up with Dr. Kirby. Ortho follow-up with Dr. Escobedo. Outpatient referral to diabetic foot clinic +/- wound clinic. Admission and Anticipated Discharge Date Admission Date: June 05, 2020 Subjective Recheck for infection left great toe. Patient seen in their room around 1130. No fever. No pain left great toe. No nausea, vomiting, diarrhea. No cough or SOB. PT working on crutch training. Physical Exam Constitutional: no acute distress Eyes: + anicteric sclerae Respiratory: normal respiratory effort, lungs clear to auscultation Cardiovascular: Rate/Rhythm: regular rate and regular rhythm Vessels: no JVD Extremities: no calf tenderness and no edema Gastrointestinal (Abdomen): normal bowel sounds, soft, nontender, no hepatosplenomegaly Musculoskeletal: Extremities: + foot abnormality (left foot bandaged); no cyanosis Skin: no rashes, warm and dry Psychiatric: Orientation: alert and oriented x 3 Results & Data Results & Data ([facility]) Vital Signs (Past 12 Hours) Vital Signs Temp Pulse Resp BP Pulse Ox 06/07/20 07:49 36.8 C 72 16 147/85 H 96 Laboratory Results Laboratory Results - last 24 hr 06/06/20 06/06/20 06/07/20 17:06 20:46 06:50 PT 11.6 INR 1.1 POC Glucose 149 H 101 H 06/07/20 08:14 PT INR POC Glucose 131 H Microbiology 06/04/20 23:27 Blood Aerobic Blood Culture - Preliminary No growth in Aerobic bottle after 48 hours. 06/04/20 23:27 Blood Anaerobic Blood Culture - Preliminary No growth in Anaerobic bottle after 48 hours. 06/04/20 23:17 Blood Aerobic Blood Culture - Preliminary No growth in Aerobic bottle after 48 hours. 06/04/20 23:17 Blood Anaerobic Blood Culture - Preliminary No growth in Anaerobic bottle after 48 hours. 06/05/20 Unknown Toe,Left Great Gram Stain - Final 06/05/20 Unknown Toe,Left Great Aerobic and Anaerobic Culture - Preliminary Pin-point growth present, reincubating.
[2020-06-07] MEDS: SENNA 8.6 MG TAB PO SCH (21:37)
[2020-06-07] MEDS: oxyCODONE HCL IR 5 MG TAB (IMMEDIATE RELEASE) PO PRN (21:40)
[2020-06-07] MEDS: DAPTOmycin 500 MG in SYRINGE 0 ML IV SCH (23:33)
[2020-06-08] MEDS: INSULIN ASPART 100 UNITS/ML 3 ML PEN SC SCH ×5 (01:06→21:39)
[2020-06-08] MEDS: PIPERACILLIN/TAZOBACTAM 3.375 GM in DEXTROSE 5% 100 ML IV SCH ×3 (04:17→19:30)
[2020-06-08 07:01] LABS: Creatinine Clr Calc Pharmacy 99.9 ml/min; Est GFR (African American) 97.3; Est GFR (Non-African American) 83.9
[2020-06-08] MEDS: DOCUSATE SODIUM 100 MG CAP PO SCH ×2 (09:30→21:40)
[2020-06-08] MEDS: ENOXAPARIN INJ 40 MG/0.4 ML SYR SQ SCH (09:31)
[2020-06-08] MEDS: MULTIVITAMIN TAB PO SCH (09:31)
[2020-06-08] MEDS: lisinopril 2.5 MG TAB PO SCH (09:31)
--- NOTE | 2020-06-08 13:52 | Orthopedic Progress Note ---
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 daily dressing changes NWB left foot No further surgery needed. Ortho will sign off at this time. Instructions placed in the DC section. (2) Cellulitis of left foot: Admission and Anticipated Discharge Date Admission Date: June 05, 2020 Subjective POD 3 Pt resting comfortably. No complaints. He would like nursing staff to go over dressing change instructions prior to dc. Physical Exam Physical Exam: Dressings removed. Wound benign. No erythema. No purulence. Minimal drainage noted. Redressed with adaptic, 4x4's, kerlix, and pratik wrap. Results & Data ([facility]) Vital Signs (Past 12 Hours) Vital Signs Temp Pulse Resp BP Pulse Ox 06/08/20 06:51 36.8 C 73 17 130/76 96
--- NOTE | 2020-06-08 16:17 | Hospitalist Progress Note ---
Date of Service June 08, 2020 Assessment & Plan (1) Diabetic foot ulcer associated with type 2 diabetes mellitus, with fat layer exposed: Diabetic foot / toe ulcers. Plain films suggest osteomyelitis distal left great toe. Ortho consulted. Amputation distal left great toe performed by Dr. Escobedo 06/05. POD # 3. Plantar ulcer base of left metatarsal debrided. Blood cultures negative. Wound culture from OR growing few Staph sp and rare gram negative bacilli. Continue IV antibiotic therapy with daptomycin and piperacillin / tazobactam. Path pending. NWB left foot. Eventual referral to diabetic foot clinic discussed. (2) Osteomyelitis of great toe of left foot: As noted above. (3) Hypertension: Continue lisinopril. (4) Diabetes mellitus type 2 with complications: Hgb A1c = 5.9. Hold glimepiride. FBS today = 154. Insulin coverage as needed. (5) DVT prophylaxis: Low risk for VTE per IMPROVE risk assessment model. SCD's ordered. Added SQ enoxaparin tomorrow because of immobility. (6) Discharge planning issues: Anticipated discharge to home. Family Medicine follow-up with Dr. Kirby. Ortho follow-up with Dr. Escobedo. Outpatient referral to diabetic foot clinic +/- wound clinic. Admission and Anticipated Discharge Date Admission Date: June 05, 2020 Subjective Recheck for infection left great toe. Patient seen in their room around 1340. No fever. No pain left great toe. No nausea, vomiting, diarrhea. No cough or SOB. Physical Exam Constitutional: no acute distress Eyes: + anicteric sclerae Respiratory: normal respiratory effort, lungs clear to auscultation Cardiovascular: Rate/Rhythm: regular rate and regular rhythm Vessels: no JVD Extremities: no calf tenderness and no edema Gastrointestinal (Abdomen): normal bowel sounds, soft, nontender, no hepatosplenomegaly Musculoskeletal: Extremities: + foot abnormality (left foot bandaged); no cyanosis Skin: no rashes, warm and dry Psychiatric: Orientation: alert and oriented x 3 Results & Data Results & Data ([facility]) Vital Signs (Past 12 Hours) Vital Signs Temp Pulse Resp BP Pulse Ox 06/08/20 06:51 36.8 C 73 17 130/76 96 Laboratory Results Laboratory Results - last 24 hr 06/07/20 06/07/20 06/08/20 17:17 20:39 00:56 Creatinine Est Cr Clr Drug Dosing Est GFR ( Amer) Est GFR (Non-Af Amer) POC Glucose 118 H 109 H 178 H 06/08/20 06/08/20 06/08/20 05:42 08:24 12:00 Creatinine 1.01 Est Cr Clr Drug Dosing 99.9 Est GFR ( Amer) 97.3 Est GFR (Non-Af Amer) 83.9 POC Glucose 154 H 174 H Microbiology 06/05/20 Unknown Toe,Left Great Gram Stain - Final 06/05/20 Unknown Toe,Left Great Aerobic and Anaerobic Culture - Preliminary Staphylococcus species
[2020-06-08] MEDS: SENNA 8.6 MG TAB PO SCH (21:40)
[2020-06-08] MEDS: DAPTOmycin 500 MG in SYRINGE 0 ML IV SCH (23:26)
[2020-06-09] MEDS: PIPERACILLIN/TAZOBACTAM 3.375 GM in DEXTROSE 5% 100 ML IV SCH ×2 (04:10→12:32)
[2020-06-09] MEDS: MULTIVITAMIN TAB PO SCH (08:58)
[2020-06-09] MEDS: DOCUSATE SODIUM 100 MG CAP PO SCH (08:58)
[2020-06-09] MEDS: lisinopril 2.5 MG TAB PO SCH (08:58)
[2020-06-09] MEDS: INSULIN ASPART 100 UNITS/ML 3 ML PEN SC SCH ×2 (08:58→13:08)
[2020-06-09] MEDS: ENOXAPARIN INJ 40 MG/0.4 ML SYR SQ SCH (09:02)
--- NOTE | 2020-06-09 22:21 | Hospitalist Progress Note ---
Date of Service June 09, 2020 Assessment & Plan (1) Diabetic foot ulcer associated with type 2 diabetes mellitus, with fat layer exposed: Diabetic foot / toe ulcers. Plain films suggested osteomyelitis distal left great toe. Ortho consulted. Amputation distal left great toe performed by Dr. Escobedo 06/05. POD # 4. Plantar ulcer base of left metatarsal debrided. Blood cultures negative. Wound culture from OR growing few Staph sp and rare gram positive bacilli. Received IV antibiotic therapy with daptomycin and piperacillin / tazobactam. Wound culture grew Staph lugdunensis. Path pending at time of discharge. NWB left foot. Eventual referral to diabetic foot clinic discussed- will defer to Ortho. Discharge on TMP/sulfa DS 2 tabs BID for at least 1 week (or longer if instructed by Ortho). (2) Osteomyelitis of great toe of left foot: As noted above. (3) Hypertension: Continue lisinopril. (4) Diabetes mellitus type 2 with complications: Hgb A1c = 5.9. Hold glimepiride. Received insulin coverage as needed. FBS today = 137. Discharge on usual regimen. (5) DVT prophylaxis: Low risk for VTE per IMPROVE risk assessment model. SCD's ordered. Added SQ enoxaparin tomorrow because of immobility. (6) Discharge planning issues: Discharge to home. Family Medicine follow-up with Dr. Kirby. Ortho follow-up with Dr. Escobedo. Outpatient referral to diabetic foot clinic +/- wound clinic. Admission and Anticipated Discharge Date Admission Date: June 05, 2020 Subjective Recheck for diabetic foot ulcer and infection left great toe. No fever. No pain left great toe. No nausea, vomiting, diarrhea. No cough or SOB. Physical Exam Constitutional: no acute distress Eyes: + anicteric sclerae Respiratory: normal respiratory effort, lungs clear to auscultation Cardiovascular: Rate/Rhythm: regular rate and regular rhythm Vessels: no JVD Extremities: no calf tenderness and no edema Gastrointestinal (Abdomen): normal bowel sounds, soft, nontender, no h epatosplenomegaly Musculoskeletal: Extremities: + foot abnormality (left foot bandaged); no cyanosis Skin: no rashes, warm and dry Psychiatric: Orientation: alert and oriented x 3 Results & Data Results & Data ([facility]) Vital Signs (Past 12 Hours) Vital Signs Temp Pulse Resp BP BP Pulse Ox 06/09/20 08:17 37.2 C 70 18 149/86 H 96 06/08/20 23:18 36.9 C 68 17 127/78 97
--- NOTE | 2020-06-10 16:17 | Discharge Summary ---
Date of Service Date of Admission: 06/05/20 Date of Discharge: 06/09/20 Admission HPI Per Admitting Provider This is a patient with a 3 week hx of an ulcer/callused area of the left great toe. Patient feels the area started from walking long distances at work at [employer] and his shoes rubbing the tip of his toe. He originally thought the area was an area of fungal infection so he was treating it with a topical cream. He saw his PCP recently who felt he needed to go to the ER. He was admitted and x- rays noted a likely osteomyelitis of the great toe distal phalanx. We were consulted for possible surgical treatment. He also has history of a large plantar ulcer at the base of fifth metatarsal though it has been under treatment since approximately 2013. He has had ongoing issues with neuropathy and ulcerations of his left foot over the last several years. Principal Diagnosis suspected osteomyelitis left great toe diabetic foot ulcer left foot Discharge Data Allergies Allergy/AdvReac Type Severity Reaction Status Date / Time No Known Allergies Allergy NONE Verified 06/04/20 23:07 Consultations 06/04/20 23:43 ED Decision to Admit Stat 06/05/20 02:28 Consult Case Management - Discharge Planning Routine 06/05/20 08:00 Consult Orthopedic Surgery Routine 06/05/20 17:41 Consult Case Management - Discharge Planning Routine Procedures Performed Operation Date: 06/05/20 11:45 Actual Procedures p Left Great Toe Partial Amputation, Left Foot Debridement(Left) - Vishal Escobedo DO Ordered Studies 06/05/20 14:15 US arterial duplex LE RT Urgent Hospital Course (1) Diabetic foot ulcer associated with type 2 diabetes mellitus, with fat layer exposed: Diabetic foot / toe ulcers. Plain films suggested osteomyelitis distal left great toe. Ortho consulted. Amputation distal left great toe performed by Dr. Escobedo 06/05. POD # 4. Plantar ulcer base of left metatarsal debrided. Blood cultures negative. Wound culture from OR growing few Staph sp and rare gram positive bacilli. Received IV antibiotic therapy with daptomycin and piperacillin / tazobactam. Wound culture grew Staph lugdunensis. Path pending at time of discharge. Nonweightbearing left foot. Eventual referral to diabetic foot clinic discussed- will defer to Ortho. Discharged on TMP/sulfa DS 2 tabs BID for at least 1 week (or longer if instructed by Ortho). (2) Osteomyelitis of great toe of left foot: As noted above. (3) Hypertension: Continue lisinopril. (4) Diabetes mellitus type 2 with complications: Hgb A1c = 5.9. Hold glimepiride. Received insulin coverage as needed. FBS day of discharge = 137. Discharged on usual regimen. (5) DVT prophylaxis: Low risk for VTE per IMPROVE risk assessment model. SCD's ordered. Added SQ enoxaparin tomorrow because of immobility. (6) Discharge planning issues: Discharged to home. Family Medicine follow-up with Dr. Kirby. Ortho follow-up with Dr. Escobedo. Outpatient referral to diabetic foot clinic +/- wound clinic. Total Time Total Time Spent Total Time Spent (In Minutes): 25 Discharge Plan Discharge Items Patient Disposition: Home - Self-Care Reason For Visit: infected left big toe; diabetic foot ulcer Discharge Diagnosis: infected left big toe with probable bone infection diabetic foot ulcer Activity: As commented below Activity Comment: Do not bear weight on left foot. Use crutches. Non-emergency contact: Primary Care Provider, Hospitalist and Surgeon Call non-emergency contact if: you have any medication questions, your symptoms worsen, your pain is not controlled and your temperature is above 101 Follow-up/Referrals: Vishal Escobedo DO [Surgeon] - 06/16/20 9:30 am (Follow up appt in 10-14 days from the day of surgery. ) Laurel Kirby DO [Primary Care Provider] - (Date & Time 06/12/2020 2:00 PM Provider Bautista Crowley III, MD Department [facility] ) Diet: Carb Consistent or DM2 and Heart Healthy Addtl Attending Provider Instructions: MEDICATION CHANGES: trimethoprim / sulfamethoxazole (Bactrim DS) 2 pills twice a day Antibiotic for toe infection. Take for at least 7 days. Refill prescription only if Orthopedics advises to do so. Drink plenty of fluids. If you develop a rash: stop taking antibiotic use diphenhydramine (Benadryl) 25 mg every 6 hours as needed call provider for additional guidance SUMMARY OF TEST RESULTS: X-ray of left foot showed probable osteomyelitis (bone infection) in the big toe. Gram stain of toe wound showed a couple different types of bacteria (few gram positive cocci, few gram positive bacilli). Culture from toe wound grew Staphylococcus lugdunensis. Hemoglobin A1c was 5.9. Fasting blood sugars day of discharge was 137. PENDING TEST RESULTS: Pathology report from surgery. Orthopedics can give you results when you see them in clinic. RECOMMENDATIONS FOR FOLLOW-UP: Please ask Orthopedics team if / when you should be referred to Diabetic Foot Clinic. Inspect your feet every day. Seek medical advice if any concerns. OTHER INSTRUCTIONS: Seek medical attention if you have: * temperature above 101 * worsening pain, swelling, pain, drainage of foot / toe * chest pain or trouble breathing * abdominal pain, nausea, vomiting * diarrhea, dark stools or bloody stools * any unanswered questions or concerns Call [phone] if symptoms are severe. Please take good care of yourself. Call if you have any questions or problems. You can reach a [facility] hospitalist on duty at 24 hours a day by calling [phone]. My cell # is [phone]. Addtl [employer] Provider Instructions: ACTIVITY RECOMMENDATIONS: Limitations: Nonweightbearing on the operative foot. SPECIAL CARE INSTRUCTIONS: * Some drainage onto the dressing is normal and is no cause for alarm. * Some swelling is natural especially after walking. * When resting, keep your foot elevated above the level of your heart. * Call [facility] if you notice: -Increased drainage -Fever over 101 degrees F -Severe constant pain BANDAGE: * Daily dressing changes for 1 week. Then every other day if the wound continues to appear benign. * Keep bandage/cast dry at all times. FOLLOW UP VISIT WITH DR. ESCOBEDO If appointment is not already scheduled: Please call [facility] after you get home today to schedule a follow-up appointment for 10-[address] Escobedo at . Pending Studies at Discharge: Yes Studies:: pathology report from surgery Stand-Alone Forms: My [facility], Work/School Release (Inpt), Smoking Cessation Medications and DC Order Prescriptions: New sulfamethoxazole-trimethoprim 800-160 mg tablet 2 tab PO BID 7 Days Qty: 28 RF: 1 Continued glimepiride 2 mg Tablet 2 mg PO DAILY RF: 0 lisinopril 2.5 mg Tablet 2.5 mg PO DAILY RF: 0 Discharge Orders: Discharge Order (Routine); Ordered 06/09/20 Ordered By: Bautista Desir/Other Patient Handouts: Managing Type 2 Diabetes, Diabetes: Inspecting Your Feet, Diabetes: Caring for Your Body Admission Data Admit Date/Time: 06/05/20 01:05 Attending Provider: Bautista Stevens Admit Provider: Wesley Slater Primary Care Provider: Laurel Kirby Other Providers: Wesley Slater ; Vishal Escobedo Other Interventions: Discharge Summary Assessment (RN) Last Done: 06/09/20 11:24
== END 2020-06-09 16:50 | disposition home or self-care (01) | DRG 617 ==
LOC: ED 22:01 → 3W 06-05 01:05